=== PATIENT | male | born 1965 | race Caucasian/White ===

== ENCOUNTER 2021-10-22 06:04 | Outpatient (CLI) | payer OTHER, SELFPAY ==
--- NOTE | 2021-10-22 | US_ITS ---
WS: [id number] Exam: US renal BI* [id number] Date/Time of Exam: 10/22/2021 6:34 AM Reason For Exam: KIDNEY STONES Technically difficult exam due to large body habitus. The kidneys are of normal size, shape and location. Nonobstructing stones are noted in both kidneys. No cysts were identified. No obvious solid renal mass. No renal obstruction. The right kidney measure s 10.82 x 7.42 x 6.5 cm. Right renal cortex measures 1.73 cm at greatest thickness. The left kidney m easures 11.2 x 7.6 x 5.6 cm. Left renal cortex measures 2.11 cm. US/US renal BI* [id number] IMPRESSION: 1. Multiple nonobstructing bilateral renal calculi. The largest stone visualize d was approximately 8 mm at greatest diameter in the left kidney. 2. No sign of renal cyst, solid mass or obstruction.
== END 2021-10-22 06:05 | disposition home or self-care (01) ==
LOC: RAD 06:05
PROVIDERS: Visit Provider Urology
DX: N20.0 Calculus of kidney (principal)
CPT/HCPCS: 76770

== ENCOUNTER 2022-11-27 06:50 | Outpatient (CLI) | payer OTHER, SELFPAY ==
[2022-11-27 07:30] VITALS: PULSE 69; RESP 18; O2SAT 98
[2022-11-27] MEDS: albuterol 2.5 mg/3 mL Neb INHALATION (07:30)
== END 2022-11-27 06:51 | disposition home or self-care (01) ==
LOC: RT 06:51
PROVIDERS: PCP Emergency Medicine; Visit Provider Emergency Medicine
DX: R06.09 Other forms of dyspnea (principal)
CPT/HCPCS: 94060; 94726; 94729; J7613

== ENCOUNTER 2024-04-22 07:02 | Outpatient (CLI) | payer OTHER, SELFPAY ==
[2024-04-22 07:48] LABS: Bilirubin Urine Negative (Negative); Blood Urine Trace (Negative); Glucose Urine UA Negative (Normal); Ketones Urine Negative (Negative); Leukocyte Esterase Urine 1+ (Negative); Nitrate Urine Negative (Negative); Protein Urine Negative (Negative); Specific Gravity, Urine 1.022 (1.005-1.030); Urine Appearance Clear (CLEAR); Urine Color Yellow (Yellow); Urobilinogen Urine 0.2 mg/dL (Negative); pH Urine 5.5 (5-7)
[2024-04-22 07:50] LABS: Add Urine Microscopic? YES; Bacteria Urine None Seen /hpf; Hyaline Casts Urine 0.81 /lpf; Squamous Epithelial Cell Urine 0-5 /hpf (0-5)
[2024-04-22 08:00] LABS: Alanine Aminotransferase 14 U/L (0-41); Alkaline Phosphatase 39 U/L (40-130); Anion Gap 11.9 (5-19); Aspartate Amino Transferase 18 U/L (0-40); Blood Urea Nitrogen 23 mg/dL (6-20); Carbon Dioxide 27 mmol/L (22-29); Chloride 105 mmol/L (98-107); Globulin 2.6 g/dL (1.3-4.6); Glucose 101 mg/dL (65-115); Osmolality Calculated 294 mOsm/kg (285-295); Potassium 3.9 mmol/L (3.5-5.1); Sodium 140 mmol/L (136-145); Total Bilirubin 0.4 mg/dL (0.15-1.2); Total Protein 6.6 g/dL (6.6-8.7)
== END 2024-04-22 07:03 | disposition home or self-care (01) ==
LOC: LAB 07:05
PROVIDERS: PCP Emergency Medicine; Visit Provider Chiropractor
DX: E11.9 Type 2 diabetes mellitus without complications (principal)
CPT/HCPCS: 36415; 80053; 81001

== ENCOUNTER 2024-06-27 16:09 | Outpatient (CLI) | payer OTHER, SELFPAY ==
--- NOTE | 2024-06-27 16:14 | US_ITS ---
WS: [id number] THYROID ULTRASOUND HISTORY: palpable rt thyroid mass COMPARISON: None available. Right lobe: 1.4 cm x 2.2 cm x 4.1 cm (w x ap x l). Volume: 6.2 cm3. Mildly enlarged RIGHT thyroid. Solid mass in the mid gland with mild increased vascularity. Mass measures 1.6 x 1.6 x 2.2 cm. No echogenic foci are present. No cystic component. Left lobe: 1.3 cm x 1.7 cm x 4.0 cm (w x ap x l). Volume: 4.0 cm3. Normal size and mild heterogeneous echotexture. No significant or dominant nodules are present. Isthmus: 0.5 cm. US/US thyroid [id number] IMPRESSION: 1. TI-RADS 4; moderately suspicious. Recommend ultrasound-guided FNA mid RIGHT thyroid nodule.
== END 2024-06-27 16:10 | disposition home or self-care (01) ==
LOC: RAD 16:10
PROVIDERS: PCP Emergency Medicine; Visit Provider Emergency Medicine
DX: E04.1 Nontoxic single thyroid nodule (principal); E04.9 Nontoxic goiter, unspecified
CPT/HCPCS: 76536

== ENCOUNTER 2024-07-21 12:06 | Outpatient (CLI) | payer OTHER, SELFPAY ==
--- NOTE | 2024-07-21 12:13 | US_ITS ---
WS: [id number] ULTRASOUND GUIDED RIGHT THYROID FNA CLINICAL INFORMATION: THYROID NODULE TECHNIQUE: Ultrasound-guided FNA FINDINGS: The procedure including risks, benefits, and complications were discussed with the patient who agreed to proceed. Timeout was performed. Using sterile technique patient was prepped and draped in usual sterile fashion. After 1% lidocaine, using ultrasound guidance, a 25-gauge needle was advanced into the RIGHT thyroid nodule. 5 passes were made with active aspiration. Pathology was present for slide preparation. No immediate complications. Patient remained in the ultrasound suite 10 minutes postprocedure with intermittent ultrasound to ensure no hematoma. No hematoma 10 minutes postprocedure. US/US guide FNA [id number] IMPRESSION: Uncomplicated ultrasound-guided RIGHT thyroid FNA
== END 2024-07-21 12:07 | disposition home or self-care (01) ==
PROVIDERS: PCP Emergency Medicine; Visit Provider Emergency Medicine
DX: D44.0 Neoplasm of uncertain behavior of thyroid gland (principal)
CPT/HCPCS: 10005; 88173

== ENCOUNTER 2024-09-21 13:58 | Emergency (ER) | payer OTHER, SELFPAY ==
--- NOTE | 2024-09-21 14:09 | XRR_ITS ---
PROCEDURE INFORMATION: Exam: XR Chest Exam date and time: 09/21/2024 2:14 PM Age: 59 years old Clinical indication: Pain; Angina pectoris; Additional info: Cp TECHNIQUE: Imaging protocol: Radiologic exam of the chest. Views: 1 view. COMPARISON: No relevant prior studies available. FINDINGS: Lungs: 3 mm peripheral nodule in the right lower lung zone. No infiltrates. Pleural spaces: Unremarkable. No pleural effusion. No pneumothorax. Heart/Mediastinum: Unremarkable. No cardiomegaly. Bones/joints: Unremarkable. XR/XR chest 1V portable [id number] IMPRESSION: 1. No acute disease in the chest. 2. 3 mm right lower lung pulmonary nodule.
--- NOTE | 2024-09-21 14:16 | ECG_ITS ---
[facility] Test Date: 2024-09-21 Pat Name: Aryan Sosa Department: Room: Gender: Male Nuclear Technologist: : 1965 Requested By: Gustavo Gilliam Order Number: [id number] Damon MD: Ellen De La Paz M.D. Measurements Intervals [place] Rate: 82 P: 21 MD: 148 QRS: 7 QRSD: 86 T: 31 QT: 345 QTc: 404 Interpretive Statements SINUS RHYTHM MINIMAL VOLTAGE CRITERIA FOR LVH, CONSIDER NORMAL VARIANT [MEETS CRITERIA IN ONE OF: R(aVL), S(V1), R(V5), R(V5/V6)+S(V1)] NONSPECIFIC T-WAVE ABNORMALITY No previous ECG available for comparison Electronically Signed On 09-21-2024 16:40:26 CDT by Ellen De La Paz M.D. [email or web address] [id number]
[2024-09-21 14:21] VITALS: BP 161/93; PULSE 78; RESP 17; TEMP 36.9; O2SAT 93; BMI 42.5
[2024-09-21 14:49] LABS: Hematocrit 48.5 % (37-53); Hemoglobin 16.40 g/dL (11.27-16.99); Mean Corpuscular HGB Conc 33.8 g/dL (30-55); Mean Corpuscular Hemoglobin 32.1 pg (27-33); Mean Corpuscular Volume 94.9 fl (82-101); Nucleated Red Blood Cells % 0 %; Platelet Count 132 10^3/cmm (157-399); Red Blood Count 5.11 10^6/uL (3.85-5.65); White Blood Count 8.50 10^3/uL (3.29-11.43)
[2024-09-21 15:09] LABS: Troponin(5th) Baseline 8 ng/L (0-15)
[2024-09-21 15:18] LABS: Alanine Aminotransferase 13 U/L (0-41); Albumin Level 4.3 g/dL (3.5-5.2); Alkaline Phosphatase 46 U/L (40-130); Blood Urea Nitrogen 18 mg/dL (6-20); Calcium 9.3 mg/dL (8.5-10.5); Carbon Dioxide 25 mmol/L (22-29); Chloride 105 mmol/L (98-107); Creatinine Clr Calc Pharmacy 114.8030; Globulin 2.5 g/dL (1.3-4.6); Glucose 98 mg/dL (65-115); Lipase 72 U/L (13-60); Osmolality Calculated 300 mOsm/kg (285-295); Sodium 144 mmol/L (136-145); Total Protein 6.8 g/dL (6.6-8.7)
[2024-09-21 15:24] LABS: Anion Gap 17.7 (5-19); Aspartate Amino Transferase 18 U/L (0-40); Potassium 3.7 mmol/L (3.5-5.1)
--- NOTE | 2024-09-21 16:09 | ECG_ITS ---
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
[2024-09-21 17:04] VITALS: BP 166/97; PULSE 75; RESP 16; O2SAT 96
--- NOTE | 2024-09-21 17:04 | ED_ITS ---
HPI - Chest Pain 2 General: Chief Complaint: Chest Pain Stated Complaint: headaches, back pain, on/off CP Time Seen by Provider: 09/21/24 16:57 History of Present Illness: 59M with chronic migraines reports a 2-d ay frontal headache rated 8/10 that kept him off work and caused two episodes of vomiting. Home abortive and monthly preventive injections failed to relieve the pain. He noticed burning, itching rash that began on the back late Thursday night, spread around to the right upper abdomen/lower chest along a band, and is new for him. Chest pain is intermittent, sharp, stabbing, currently absent. No fever. Daughter?s internet search suggested shingles, which clinician concurs. No prior cardiac problems. Occasional cigar use only. Related Data Previous Rx's ?Medication ?Instructions ?Recorded acyclovir 800 mg tablet 800 mg PO 5XD 7 days #35 tab s 09/21/24 Allergies Allergy/AdvReac Type Severity Reaction Status Date / Time No Known Allergies Allergy Verified 09/21/24 14:26 Physical Exam 2 Const: COMMON NORMALS: no acute distress, patient oriented x3 and alert HENMT: COMMON NORMALS: normocephalic and atraumatic HEAD & SCALP: n ormocephalic and atraumatic Eye: COMMON NORMALS: Equal, round and reactive pupils present, EOMs intact bilaterally and no scleral icterus PUPIL: Yes Equal, round and reactive pupils present Chest: OTHER: Chest pain is not reproducible with palpation or deep inspiration Resp: COMMON NORMALS: normal respiratory effort and No retractions Cardio: COMMON NORMALS: regular rate, regular rhythm and No murmurs present (Cardio) RATE: regular rate RHYTHM: regular rhythm GI: COMMON NORMALS: Normal to inspection, nondistended, normoactive bowel sounds present, Soft to palpation and non-tender PALPATION: Yes Soft to palpation Neuro: COMMON NORMALS: patient oriented x3 SENSORIUM/ORIENTATION: Yes alert Skin: NARRATIVE SKIN EXAM: islands of raised, red, vesicular rash in various stages of healing and crusting spreading across the upper back to the right upper abdomen and lower chest consistent with shingles. Course 2 Vital Signs: Vital signs: Vital Signs Temperature 98.4 F 09/21/24 14:21 Pulse Rate 71 09/21/24 20:11 Respiratory Rate 14 09/21/24 19:51 Blood Pressure 169/99 09/21/24 20:11 Pulse Oximetry 95 09/21/24 20:11 Oxygen Delivery Me thod Room Air 09/21/24 18:07 MDM - Chest Pain Medical Decision Making In summary, patient is a generally well-appearing 59-year-old male seen for migraine headache and what appears to be shingles. EKG is reassuring and troponin x 2 is similarly reassuring. Chest x-ray and labs are otherwise unremarkable. Headache is better with IV fluids, Benadryl, Compazine, and Decadron. He was given valacyclovir for shingles. Lab Data 09/21/24 14:41 09/21/24 14:41 Radiology Impressions Chest X-Ray 09/21/24 14:09 IMPRESSION: 1. No acute disease in the chest. 2. 3 mm right lower lung pulmonary nodule. Laboratory Results WBC 8.50 10^3/uL (3.29-11.43) 09/21/24 14:41 RBC 5.11 10^6/uL (3.85-5.65) 09/21/24 14:41 Hgb 16.40 g/dL (11.27-16.99) 09/21/24 14:41 Hct 48.5 % (37-53) 09/21/24 14:41 MCV 94.9 fl (82-101) 09/21/24 14:41 MCH 32.1 pg (27-33) 09/21/24 14:41 MCHC 33.8 g/dL (30-55) 09/21/24 14:41 RDW 13.4 % (12.1-15.1) 09/21/24 14:41 Plt Count 132 10^3/cmm (157-399) L 09/21/24 14:41 MPV 8.6 fL (7.4-10.4) 09/21/24 14:41 Neut % (Auto) 72.6 % 09/21/24 14:41 Lymph % (Auto) 18.5 % 09/21/24 14:41 Wright % (Auto) 6.0 % 09/21/24 14:41 Eos % (Auto) 1.5 % 09/21/24 14:41 Baso % (Auto) 0.8 % 09/21/24 14:41 Neut # (Auto) 6.17 10^3/uL (1.8-7.7) 09/21/24 14:41 Lymph # (Auto) 1.6 10^3/uL (0.8-4.8) 09/21/24 14:41 Wright # (Auto) 0.5 10^3/uL (0.2-0.9) 09/21/24 14:41 Eos # (Auto) 0.1 10^3/uL (0.0-0.8) 09/21/24 14:41 Baso # (Auto) 0.1 10^3/uL (0.0-0.1) 09/21/24 14:41 Nucleated RBC % (auto) 0 % 09/21/24 14:41 Nucleated RBCs # 0.0 /100WBC 09/21/24 14:41 Sodium 144 mmol/L (136-145) 09/21/24 14:41 Potassium 3.7 mmol/L (3.5-5.1) 09/21/24 14:41 Chloride 105 mmol/L (98-107) 09/21/24 14:41 Carbon Dioxide 25 mmol/L (22-29) 09/21/24 14:41 Anion Gap 17.7 (5-19) 09/21/24 14:41 BUN 18 mg/dL (6-20) 09/21/24 14:41 Creatinine 0.9 mg/dL (0.7-1.2) 09/21/24 14:41 GFR Calculation 86.4 mL/min (90-130) L 09/21/24 14:41 Glucose 98 mg/dL (65-115) 09/21/24 14:41 Calculated Osmolality 300 mOsm/kg (285-295) H 09/21/24 14:41 Calcium 9.3 mg/dL (8.5-10.5) 09/21/24 14:41 Total Bilirubin 0.3 mg/dL (0.15-1.2) 09/21/24 14:41 AST 18 U/L (0-40) 09/21/24 14:41 ALT 13 U/L (0-41) 09/21/24 14:41 Alkaline Phosphatase 46 U/L (40-130) 09/21/24 14:41 Troponin T Baseline 8 ng/L (0-15) 09/21/24 14:41 Troponin T 120 Minute 7.56 ng/L (0-15) 09/21/24 17:02 Delta Troponin T -0.44 ABS# (0-10) L 09/21/24 17:02 Total Protein 6.8 g/dL (6.6-8.7) 09/21/24 14:41 Albumin 4.3 g/dL (3.5-5.2) 09/21/24 14:41 Globulin 2.5 g/dL (1.3-4.6) 09/21/24 14:41 Lipase 72 U/L (13-60) H 09/21/24 14:41 All radiology interpretation(s) finalized by discharge EKG Data EKG 1: Computer generated interpretation: Time?1416?sinus rhythm, rate of 82, subtle submillimeter ST segment elevation of aVR with subtle, submillimeter ST depression of leads II, aVF, V5, V4, with no T wave inversions. QTc = 404 Discharge Plan Discharge Patient Disposition: Home Clinical Impression: Migraine, Herpes zoster infection of thoracic region Condition: Stable Prescriptions: New acyclovir 800 mg tablet 800 mg PO 5XD 7 Days Qty: 35 0RF Rx Instructions: space evenly during waking hours Discharge Orders: Discharge ED (Routine); Ordered 09/21/24 Ordered By: Mehul Lopes Referrals: Juany Malcolm M.D [Primary Care Provider] Discharge Diet: Advance as tolerated Discharge Activity: Increase activity as tolerated Patient Instructions: Cherri (ED), Patient Portal & Nitin Instructions Stand Alone Forms: Work/School Release Print Language: Turkmen Coding Level of Care Code ED Title Investigator for Angela Medley
[2024-09-21 17:38] LABS: Troponin 5 2HR 7.56 ng/L (0-15)
[2024-09-21 17:43] LABS: Troponin 5 2HR Delta -0.44 ABS# (0-10)
[2024-09-21] MEDS: diphenhydrAMINE 50 mg/mL SDV 1mL IVP (17:59)
[2024-09-21 18:07] VITALS: BP 178/91; PULSE 70; RESP 17; O2SAT 98
[2024-09-21 18:43] VITALS: BP 165/89; PULSE 62; RESP 15; O2SAT 95
[2024-09-21 19:51] VITALS: BP 164/90; PULSE 68; RESP 14; O2SAT 94
--- NOTE | 2024-09-21 20:09 | ECG_ITS ---
[facility] Test Date: 2024-09-21 Pat Name: Aryan Sosa Department: Room: Gender: Male Health Record Technician: : 1965 Requested By: Gustavo Gilliam Order Number: [id number] Reading MD: VERO MUSA Measurements Intervals [place] Rate: 68 P: 49 [place]: 162 QRS: 13 QRSD: 89 T: 31 QT: 385 QTc: 412 Interpretive Statements SINUS RHYTHM Compared to ECG 09/21/2024 17:10:23 T-wave abnormality no longer present Electronically Signed On 09-24-2024 16:13:00 CDT by VERO MUSA [email or web address] [id number]
[2024-09-21 20:11] VITALS: BP 169/99; PULSE 71; O2SAT 95
== END 2024-09-21 20:21 | disposition home or self-care (01) ==
PROVIDERS: Emergency Medicine; Emergency Provider Student in an Organized Health Care Education/Training Program; PCP Emergency Medicine
DX: G43.909 Migraine, unspecified, not intractable, without status migrainosus (principal); B02.9 Zoster without complications
CPT/HCPCS: 36415; 71045; 80053; 83690; 84484; 85025; 93005; 96361; 96374; 96375; 99285; J0780; J1100; J1200; J7030; J9999

== ENCOUNTER 2024-12-28 13:49 | Outpatient (CLI) | payer OTHER, SELFPAY ==
--- NOTE | 2024-12-28 13:58 | XR_ITS ---
WS: [email or web address] Thoracic spine, 3 views, 12/28/2024 Clinical Data: BACK PAIN Comparison: None. Findings: No compression fractures are seen. The disc heights are normal. There is minimal anterior osteoarthritis. The paravertebral regions are normal. There is a slight dextroscoliosis. XR/XR thoracic spine 3V* [id number] Impression: Dextroscoliosis and minimal osteoarthritis of the thoracic spine.
--- NOTE | 2024-12-28 13:58 | XR_ITS ---
WS: [email or web address] Cervical spine, 3 views, 12/28/2024 Clinical Data: BACK PAIN Comparison: None. Findings: No compression fractures are seen. There is minimal disc narrowing at C6-C7. There is no prevertebral soft tissue swelling. The odontoid is unremarkable. The soft tissues of the neck and the lung apices are normal. XR/XR cervical spine 3V* [id number] Impression: Disc narrowing at C6-C7.
--- NOTE | 2024-12-28 13:58 | XR_ITS ---
WS: [email or web address] Lumbar spine, 3 views, 12/28/2024 Clinical Data: BACK PAIN Comparison: None. Findings: No compression fractures are seen. There is 0.9 cm anterior subluxation of L5 on S1 with bilateral spondylolysis. There is disc narrowing at L5-S1. The transverse processes and SI joints are normal. XR/XR lumbar spine 2-3V* [id number] Impression: Anterior subluxation of L5 on S1 with bilateral spondylolysis.
== END 2024-12-28 13:50 | disposition home or self-care (01) ==
PROVIDERS: PCP Emergency Medicine; Visit Provider Nurse Practitioner Family
DX: M43.07 Spondylolysis, lumbosacral region (principal); M51.379 Other intervertebral disc degeneration, lumbosacral region without mention of lumbar back pain or lower extremity pain; R93.7 Abnormal findings on diagnostic imaging of other parts of musculoskeletal system
CPT/HCPCS: 72040; 72072; 72100

== ENCOUNTER 2025-02-05 09:18 | Emergency (ER) | payer OTHER, SELFPAY ==
--- OUTSIDE RECORDS SUMMARY | 2025-02-05 09:26 | XMS_ITS | Clinical Summary ---
Author Organization [facility] Address [address] [place] [address] Phone Care Team Providers Care Winery Cellar Hand Name Role Phone Juany Malcolm MD Primary Care Provider Unavailab le Social History Tobacco Use Types Packs/Day Years Used Date Smoking Tobacco: Never Assessed Sex and Gender Information Value Date Recorded Sex Assigned at Not on file Legal Sex Male 2:44 PM CDT Gender Identity Not on file Sexual Orientation Not on file Plan of Treatment Health Maintenance Due Date Last Done Comments CT Colonography 1965 Colonoscopy 1965 Colorectal Cancer Screening 1965 Creatinine Level 1965 FIT-DNA 1965 FIT 1965 FOBT 1965 Lipid Panel 1965 Potassium Level 1965 Sigmoidoscopy 1965 MMR Vaccines (1 of 1 - Standard series) 1966 Varicella Vaccines (1 of 2 - 13+ 2-dose series) 1978 Depression Screening 1983 Diabetes Screening 1983 Social Drivers of Health (SDoH) 1983 Hepatitis B Vaccines (1 of 3 - 19+ 3-dose series) 02/15/1984 COVID-19 Vaccine ( - season) 2024 Influenza Vaccine (#1) 2024 , 11/11/2022, 01/02/2021, Additional history exists DTaP,Tdap,and Td Vaccines (6 - Td or Tdap) 01/02/2031 01/02/2021, 12/12/2016, 05/21/2011, Additional history exists RSV Vaccines (1 - 1-dose 75+ series) 02/15/2040 Zoster Vaccines Completed 01/02/2021, 06/04/2020 Pneumococcal Vaccines: 50+ Years Completed 01/03/2022, 11/16/2015 HIB Vaccines Aged Out No longer eligi ble based on patient's age to complete this topic HPV Vaccines Aged Out No longer eligi ble based on patient's age to complete this topic Hepatitis A Vaccines Aged Out No long er eligible based on patient's age to complete this topic IPV Vaccines Aged Out No longer eligi ble based on patient's age to complete this topic Meningococcal B Vaccine Aged Out No l onger eligible based on patient's age to complete this topic Meningococcal Vaccine Aged Out No elisa martha eligible based on patient's age to complete this topic Rotavirus Vaccines Aged Out No longer eligible based on patient's age to complete this topic Insurance [facility] OPTUM Care Teams Winery Cellar Hand Relationship Specialty Start Date End Date Juany Malcolm MD PCP - General Family Medicine 06/17/24
--- OUTSIDE RECORDS SUMMARY | 2025-02-05 09:26 | XMS_ITS | Clinical Summary ---
Author Organization [facility] Address [address] Villalobos: Epic Prelude ADT GRACIE FRAZIER [id number] Care Team Providers Care Composite Science Teacher Name Role Phone Unavailable Primary Care Provider Unavailabl e Allergies Active Allergy Reactions Criticality Noted Date Comments Metformin Diarrhea Low 11/16/2015 Immunizations Immunization Administration Dates Next Due (TDVAX)(7 YRS UP) TETANUS AN D DIPHTHERIA TOXOIDS, ADSORBED (2 LF OF TETANUS TOXOID AND 2 LF OF DIPHTHERIA TOXOID), 0.5ML (PF), IM 06/22/1998 Social History Tobacco Use Types Packs/Day Years Used Date Smoking Tobacco: Never Assessed Sex and Gender Information Value Date Recorded Sex Assigned at Not on file 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
[2025-02-05 09:29] VITALS: BP 145/93; PULSE 68; RESP 18; TEMP 36.6; O2SAT 99; BMI 41.6
--- NOTE | 2025-02-05 09:39 | CTR_ITS ---
PROCEDURE INFORMATION: Exam: CT Abdomen And Pelvis With Contrast Exam date and time: 02/05/2025 10:03 AM Age: 59 years old Clinical indication: Other: Upper abd pain, hematuria TECHNIQUE: Imaging protocol: Computed tomography of the abdomen and pelvis with contrast. Radiation optimization: All CT scans at this facility use at least one of these dose optimization techniques: automated exposure control; mA and/or kV adjustment per patient size (includes targeted exams where dose is matched to clinical indication); or iterative reconstruction. Contrast material: OMNI 350; Contrast volume: 100 ml; Contrast route: INTRAVENOUS (IV); COMPARISON: US renal BI* [id number] 10/22/2021 6:36 AM RADIATION DOSE METRICS: Total DLP (mGy-cm): 1160.65 FINDINGS: Lungs: 2 mm solid noncalcified nodule lateral right lung base. Otherwise, clear lung bases. Liver: Mild, diffuse fatty infiltration of the liver. A few tiny low-density lesions scattered throughout the liver. Otherwise, unremarkable. Gallbladder and biliary ducts: Small gallstone in the gallbladder near the neck. Possible mild gallbladder wall thickening. Unremarkable bile ducts. Pancreas: Normal. No ductal dilation. Spleen: Normal. No splenomegaly. Adrenal glands: Normal. No mass. Kidneys and ureters: Multiple tiny renal cysts bilaterally need no follow-up. Multiple small nonobstructing bilateral renal calculi. Otherwise, unremarkable. Stomach and bowel: Unremarkable. No obstruction. No mucosal thickening. Appendix: No evidence of appendicitis. Intraperitoneal space: Unremarkable. No free air. No significant fluid collection. Vasculature: Unremarkable. No abdominal aortic aneurysm. Lymph nodes: Large right inguinal hernia containing fat, a portion of the urinary bladder, and a normal appearing lymph node. Urinary bladder: Otherwise, unremarkable. Reproductive: Unremarkable. Bones/joints: Chronic bilateral L5 spondylolysis with grade 1 spondylolisthesis of L5 anteriorly on S1. Mild and moderate multilevel spondylosis. Otherwise, unremarkable. Soft tissues: Large right inguinal hernia containing fat, a portion of the urinary bladder, and a normal appearing lymph node. Small fat containing left inguinal hernia. Otherwise, unremarkable visualized body wall. Otherwise, unremarkable soft tissues. CT/CT abdomen pelvis w con* [id number] IMPRESSION: 1. Large right inguinal hernia containing fat, a portion of the urinary bladder, and a normal appearing lymph node. 2. Small fat containing left inguinal hernia. 3. 2 mm solid noncalcified nodule lateral right lung base. For patients at low risk (minimal or absent history of smoking and of other known risk factors), no routine follow-up is indicated. For patients at high risk (history of smoking or of other known risk factors), consider optional CT Chest at 12 months. (Reference: Tracie) 4. Mild, diffuse fatty infiltration of the liver. 5. A few tiny low-density lesions scattered throughout the liver. Consider a follow-up CT in 6 months to ensure stability of these likely benign findings. 6. Small gallstone in the gallbladder near the neck. Possible mild gallbladder wall thickening. Consider cholecystitis. 7. No other acute findings. 8. Additional details as above. COMMENTS: Consistent with the [place] [employer]'s Incidental Findings Committee white paper (J Am Mil Radiol 2018): Any incidental renal lesion less than 1 cm or classified as too small to characterize, or any incidental cystic renal lesion characterized as simple-appearing, is likely benign. No follow-up imaging is recommended for these lesions per consensus recommendations based on imaging criteria. REFERENCES: Tracie Goodson et al. Guidelines for Management of Incidental Pulmonary Nodules Detected on CT Images: From the Fleischner Society 2017. Radiology. 2017;284(1):228-243.
--- NOTE | 2025-02-05 09:46 | W.ED.ABDPA2 ---
Documented by User: WADE Mullen 02/05/25 13:18 HPI - Abdominal Pain General: Chief Complaint: Abdominal Pain Stated Complaint: abdominal pain, urinating blood Time Seen by Provider: 02/05/25 09:29 Source: patient Mode of arrival: ambulatory Limitations: no limitations History of Present Illness: evaluation. Patient is a 59-year-old male who presents to the emergency department complaining of epigastric pain for the past 2 days. Pain has been constant since onset, will intermittently take his breath away. States that he thought it was acid reflux but it has persisted longer and feels different. He does take Zepbound for weight loss. At the same time as onset of pain, he does note consistent hematuria. He has no lower abdominal pain, dysuria, hesitancy with urination, or back pain. He does note a history of kidney stones but again states that he is not having any pain. No fevers, nausea or vomiting, diarrhea. No blood in his stool. No weakness. No chest pain. Pain is mild at this time, denies needing pain medication or nausea medication. Does have history of inguinal hernia, states that he is not having any testicular pain. No penile discharge. Vitals are stable at this time he is nontoxic-appearing and in no acute distress. No other history of abdominal surgeries. MD elicited complaint: abdominal pain Onset (ago): day(s) Pain Consistency: constant Location: Epigastric Severity: mild Quality: dull and burning Associated Symptoms: Reports hematuria; Denies bloating, change in stool character, chills, constipation, diarrhea, dysuria, fever(s), hematochezia, nausea and vomiting Related Data Home Medications ?Medication ?Instructions ?Recorded ?Confirmed allopurinol 300 mg tablet 300 mg PO DAILY 02/05/25 02/05/25 anastrozole 1 mg tablet 1 mg PO .Q7D 02/05/25 02/05/25 cholecalciferol (vitamin D3) 50 50 mcg PO DAILY 02/05/25 02/05/25 mcg (2,000 unit) tablet clomiphene citrate 50 mg tablet 25 mg PO DAILY 02/05/25 02/05/25 fexofenadine 180 mg tablet 180 mg PO DAILY 02/05/25 02/05/25 levothyroxine 25 mcg tablet 25 mcg PO DAILY 02/05/25 02/05/25 lisinopril 10 1 tab PO DAILY 02/05/25 02/05/25 mg-hydrochlorothiazide 12.5 mg tablet riboflavin (vitamin B2) 100 mg 200 mg PO DAILY 02/05/25 02/05/25 tablet sertraline 100 mg tablet 50 mg PO DAILY 02/05/25 02/05/25 tamsulosin 0.4 mg capsule 0.8 mg PO DAILY 02/05/25 02/05/25 tirzepatide (weight loss) 15 15 mg SUBCUT Q7D 02/05/25 02/05/25 mg/0.5 mL subcutaneous pen injector Allergies Allergy/AdvReac Type Severity Reaction Status Date / Time No Known Allergies Allergy Verified 09/21/24 14:26 Review of Systems General: Reports: 10 or more systems reviewed and unremarkable except in HPI and below Const: Denies: fever(s), chills, change in appetite, change in weight or diaphoresis ENMT: Denies: throat pain or hoarseness Card: Denies: chest pain, palpitations or lightheadedness Resp: Denies: dyspnea, productive cough or wheezing GI: Reports: abdominal pain; Denies: nausea, vomiting, diarrhea, constipation, bloating, change in stool character or hematochezia : Reports: hematuria; Denies: flank pain, difficulty urinating, dysuria, urinary frequency, urinary urgency, genital pain, penile discharge or testicular pain Musc: Denies: neck pain or back pain Skin/Breast: Denies: rash or new lesions Neuro: Denies: headache(s) or dizziness Physical Exam Const: COMMON NORMALS: no acute distress, patient oriented x3, no limitations, healthy appearing, alert and well nourished GENERAL APPEARANCE: cooperative and comfortable ORIENTATION/CONSCIOUSNESS: Yes awake OTHER: nontoxic Neck/C-Spine: COMMON NORMALS: full ROM, supple and no meningeal signs Resp: COMMON NORMALS: normal respiratory effort, No retractions, No use of accessory muscles and clear to auscultation bilaterally AUSCULTATION: clear to auscultation bilaterally, no crackles, no rales, no rhonchi and no wheezes Cardio: COMMON NORMALS: regular rate, regular rhythm, No gallops present (Cardio), No clicks present (Cardio), No murmurs present (Cardio) and No rub (Cardio) RATE: regular rate RHYTHM: regular rhythm GI: COMMON NORMALS: Soft to palpation, No hepatosplenomegaly present and no masses INSPECTION: Yes central obesity AUSCULTATION: Yes normoactive bowel sounds PALPATION: Yes Soft to palpation, Yes Tenderness to palpation present (GI) (upper abdomen), No Guarding due to palpation present (GI), No Rigid due to palpation and Yes No hepatosplenomegaly present RECTAL EXAM: Yes deferred : COMMON NORMALS: Yes no CVA tenderness BLADDER/KIDNEY EXAM: Yes no CVA tenderness Back/Pelvis: COMMON NORMALS: no CVA tenderness Extremity: COMMON NORMALS: normal to inspection and full ROM Neuro: COMMON NORMALS: patient oriented x3, moves all extremities, no focal motor deficits and no sensory deficits noted SENSORIUM/ORIENTATION: Yes alert MENINGEAL SIGNS: Yes no meningeal signs Psych: COMMON NORMALS: mental status grossly normal, cooperative and speech normal SPEECH: Yes normal speech Skin: COMMON NORMALS: no rashes or lesions noted GENERAL SKIN EXAM: no rashes or lesions noted Course Vital Signs: Vital signs: Vital Signs Temperature 97.8 F 02/05/25 09:29 Pulse Rate 68 02/05/25 09:29 Respiratory Rate 18 02/05/25 09:29 Blood Pressure 145/93 02/05/25 09:29 Pulse Oximetry 99 02/05/25 09:29 Oxygen Delivery Me thod Room Air 02/05/25 09:29 MDM - Abdominal Pain Medical Decision Making Patient presented with upper abdominal pain, and hematuria both been occurring for the past couple of days. On exam tender to palpation to the upper abdomen, no flank tenderness and he had no other urinary symptoms such as dysuria or hesitancy/frequency changes. Lab workup shows no leukocytosis however there is elevation in his total bilirubin to 2.2, transaminitis, and lipase elevation to 549. Urinalysis shows hematuria but no significant infectious parameters. CT was ordered showing inguinal hernia containing fat and a portion of the urinary bladder, this likely explains his hematuria though there are no signs of strangulation or incarceration and this is to be addressed by his urologist as an outpatient. However with his gallbladder appeared to be a couple of stones, 1 adjacent to the neck and evidence of cholecystitis and recommended correlation with ultrasound. There is no duct dilation on the ultrasound, however there is cholecystitis. I spoke with Dr. Galo, who thinks that there still might be a stone and that this would need an ERCP and he cannot except here. Because of this patient transferred to [facility], excepted by hospitalist services Dr. Aguilar and will transfer by ambulance. He is sleeping fluids at this time received Rocephin through IV and pain and nausea medications. Vitals have remained stable he has remained clinically well, agrees with transfer and all other questions and concerns addressed at this time. Lab Data 02/05/25 10:02 02/05/25 10:02 Labs/Radiology: Radiology Impressions Abdomen/Pelvis CT 02/05/25 09:39 IMPRESSION: 1. Large right inguinal hernia containing fat, a portion of the urinary bladder, and a normal appearing lymph node. 2. Small fat containing left inguinal hernia. 3. 2 mm solid noncalcified nodule lateral right lung base. For patients at low risk (minimal or absent history of smoking and of other known risk factors), no routine follow-up is indicated. For patients at high risk (history of smoking or of other known risk factors), consider optional CT Chest at 12 months. (Reference: Tracie) 4. Mild, diffuse fatty infiltration of the liver. 5. A few tiny low-density lesions scattered throughout the liver. Consider a follow-up CT in 6 months to ensure stability of these likely benign findings. 6. Small gallstone in the gallbladder near the neck. Possible mild gallbladder wall thickening. Consider cholecystitis. 7. No other acute findings. 8. Additional details as above. COMMENTS: Consistent with the [employer] [employer]'s Incidental Findings Committee white paper (J Am Mil Radiol 2018): Any incidental renal lesion less than 1 cm or classified as too small to characterize, or any incidental cystic renal lesion characterized as simple-appearing, is likely benign. No follow-up imaging is recommended for these lesions per consensus recommendations based on imaging criteria. REFERENCES: Tracie Goodson, et al. Guidelines for Management of Incidental Pulmonary Nodules Detected on CT Images: From the Fleischner Society 2017. Radiology. 2017;284(1):228-243. Gallbladder Ultrasound 02/05/25 10:37 IMPRESSION: 1. Several small gallstones in the gallbladder. Diffuse gallbladder wall thickening measuring as much as 5 mm. Cholecystitis should be considered. 2. The liver is diffusely hyperechoic consistent with fatty infiltration. However, cirrhosis or diffuse hepatocellular disease could have this appearance, as well. 3. No other acute findings. 4. Additional details as above. Laboratory Results WBC 5.90 10^3/uL (3.29-11.43) 02/05/25 10:02 RBC 4.84 10^6/uL (3.85-5.65) 02/05/25 10:02 Hgb 15.40 g/dL (11.27-16.99) 02/05/25 10:02 Hct 45.9 % (37-53) 02/05/25 10:02 MCV 94.8 fl (82-101) 02/05/25 10:02 MCH 31.8 pg (27-33) 02/05/25 10:02 MCHC 33.6 g/dL (30-55) 02/05/25 10:02 RDW 13.3 % (12.1-15.1) 02/05/25 10:02 Plt Count 159 10^3/cmm (157-399) 02/05/25 10:02 MPV 8.6 fL (7.4-10.4) 02/05/25 10:02 Neut % (Auto) 67.9 % 02/05/25 10:02 Lymph % (Auto) 21.5 % 02/05/25 10:02 [place] % (Auto) 5.3 % 02/05/25 10:02 Eos % (Auto) 3.4 % 02/05/25 10:02 Baso % (Auto) 1.4 % 02/05/25 10:02 Neut # (Auto) 4.01 10^3/uL (1.8-7.7) 02/05/25 10:02 Lymph # (Auto) 1.3 10^3/uL (0.8-4.8) 02/05/25 10:02 [place] # (Auto) 0.3 10^3/uL (0.2-0.9) 02/05/25 10:02 Eos # (Auto) 0.2 10^3/uL (0.0-0.8) 02/05/25 10:02 Baso # (Auto) 0.1 10^3/uL (0.0-0.1) 02/05/25 10:02 Nucleated RBC % (auto) 0 % 02/05/25 10:02 Nucleated RBCs # 0.0 /100WBC 02/05/25 10:02 Sodium 139 mmol/L (136-145) 02/05/25 10:02 Potassium 4.0 mmol/L (3.5-5.1) 02/05/25 10:02 Chloride 104 mmol/L (98-107) 02/05/25 10:02 Carbon Dioxide 26 mmol/L (22-29) 02/05/25 10:02 Anion Gap 13.0 (5-19) 02/05/25 10:02 BUN 18 mg/dL (6-20) 02/05/25 10:02 Creatinine 0.9 mg/dL (0.7-1.2) 02/05/25 10:02 GFR Calculation 86.4 mL/min (90-130) L 02/05/25 10:02 Glucose 104 mg/dL (65-115) 02/05/25 10:02 Calculated Osmolality 290 mOsm/kg (285-295) 02/05/25 10:02 Calcium 9.2 mg/dL (8.5-10.5) 02/05/25 10:02 Total Bilirubin 2.2 mg/dL (0.15-1.2) H 02/05/25 10:02 AST 266 U/L (0-40) H 02/05/25 10:02 ALT 425 U/L (0-41) H 02/05/25 10:02 Alkaline Phosphatase 130 U/L (40-130) 02/05/25 10:02 Total Protein 7.1 g/dL (6.6-8.7) 02/05/25 10:02 Albumin 4.2 g/dL (3.5-5.2) 02/05/25 10:02 Globulin 2.9 g/dL (1.3-4.6) 02/05/25 10:02 Lipase 549 U/L (13-60) H 02/05/25 10:02 Urine Color [place] (Yellow) A 02/05/25 10:13 Urine Appearance Turbid (CLEAR) A 02/05/25 10:13 Urine pH 5.5 (5-7) 02/05/25 10:13 Ur Specific [place] 1.020 (1.005-1.030) 02/05/25 10:13 Urine Protein Trace (Negative) A 02/05/25 10:13 Urine Glucose (UA) Negative (Normal) 02/05/25 10:13 Urine Ketones Negative (Negative) 02/05/25 10:13 Urine Blood 3+ (Negative) A 02/05/25 10:13 Urine Nitrate Negative (Negative) 02/05/25 10:13 Urine Bilirubin 1+ (Negative) H 02/05/25 10:13 Urine Urobilinogen 1.0 mg/dL (Negative) 02/05/25 10:13 Ur Leukocyte Esterase 1+ (Negative) A 02/05/25 10:13 Urine RBC >100 /hpf (0-2) H 02/05/25 10:13 Urine WBC 0-5 /hpf (0-5) 02/05/25 10:13 Ur Squamous Epith Cells 0-5 /hpf (0-5) 02/05/25 10:13 Amorphous Sediment Not Reportable 02/05/25 10:13 Urine Bacteria None seen /hpf (NONE) 02/05/25 10:13 Hyaline Casts 1.65 /lpf 02/05/25 10:13 All radiology interpretation(s) finalized by discharge Discharge Plan Discharge Patient Disposition: Xfer Short-Term Hosp Clinical Impression: Acute calculous cholecystitis Condition: Stable Referrals: Juany Malcolm M.D [Primary Care Provider] Patient Instructions: Abdominal Pain (ED) Print Language: Citizen Of [place] Coding Level of Care Code ED Central Supply Technician for Chg Galindo Documented by User: Gustavo Gilliam MD 02/05/25 14:03 HPI - Abdominal Pain General: Chief Complaint: Abdominal Pain Stated Complaint: abdominal pain, urinating blood Time Seen by Provider: 02/05/25 09:29 Related Data Home Medications ?Medication ?Instructions ?Recorded ?Confirmed allopurinol 300 mg tablet 300 mg PO DAILY 02/05/25 02/05/25 anastrozole 1 mg tablet 1 mg PO .Q7D 02/05/25 02/05/25 cholecalciferol (vitamin D3) 50 50 mcg PO DAILY 11/30/25 11/30/25 mcg (2,000 unit) tablet clomiphene citrate 50 mg tablet 25 mg PO DAILY 02/05/25 02/05/25 fexofenadine 180 mg tablet 180 mg PO DAILY 02/05/25 02/05/25 levothyroxine 25 mcg tablet 25 mcg PO DAILY 02/05/25 02/05/25 lisinopril 10 1 tab PO DAILY 02/05/25 02/05/25 mg-hydrochlorothiazide 12.5 mg tablet riboflavin (vitamin B2) 100 mg 200 mg PO DAILY 02/05/25 02/05/25 tablet sertraline 100 mg tablet 50 mg PO DAILY 02/05/25 02/05/25 tamsulosin 0.4 mg capsule 0.8 mg PO DAILY 02/05/25 02/05/25 tirzepatide (weight loss) 15 15 mg SUBCUT Q7D 02/05/25 02/05/25 mg/0.5 mL subcutaneous pen injector Allergies Allergy/AdvReac Type Severity Reaction Status Date / Time No Known Allergies Allergy Verified 09/21/24 14:26 Course Vital Signs: Vital signs: Vital Signs Temperature 97.8 F 02/05/25 09:29 Pulse Rate 68 02/05/25 09:29 Respiratory Rate 18 02/05/25 09:29 Blood Pressure 145/93 02/05/25 09:29 Pulse Oximetry 99 02/05/25 09:29 Oxygen Delivery Me thod Room Air 02/05/25 09:29 MDM - Abdominal Pain Medical Decision Making Patient presented with upper abdominal pain, and hematuria both been occurring for the past couple of days. On exam tender to palpation to the upper abdomen, no flank tenderness and he had no other urinary symptoms such as dysuria or hesitancy/frequency changes. Lab workup shows no leukocytosis however there is elevation in his total bilirubin to 2.2, transaminitis, and lipase elevation to 549. Urinalysis shows hematuria but no significant infectious parameters. CT was ordered showing inguinal hernia containing fat and a portion of the urinary bladder, this likely explains his hematuria though there are no signs of strangulation or incarceration and this is to be addressed by his urologist as an outpatient. However with his gallbladder appeared to be a couple of stones, 1 adjacent to the neck and evidence of cholecystitis and recommended correlation with ultrasound. There is no duct dilation on the ultrasound, however there is cholecystitis. I spoke with Dr. Iraj, who thinks that there still might be a stone and that this would need an ERCP and he cannot except here. Because of this patient transferred to [facility], excepted by hospitalist services Dr. Aguilar and will transfer by ambulance. He is sleeping fluids at this time received Rocephin through IV and pain and nausea medications. Vitals have remained stable he has remained clinically well, agrees with transfer and all other questions and concerns addressed at this time. I saw patient with midlevel agree with his history and physical. Patient has a pancreatitis along with cholecystitis midlevel and spoke to his surgeon Dr. Galo who recommended transfer for possible ERCP. Patient is being transferred to [facility]. Lab Data 02/05/25 10:02 02/05/25 10:02 Labs/Radiology: Radiology Impressions Abdomen/Pelvis CT 02/05/25 09:39 IMPRESSION: 1. Large right inguinal hernia containing fat, a portion of the urinary bladder, and a normal appearing lymph node. 2. Small fat containing left inguinal hernia. 3. 2 mm solid noncalcified nodule lateral right lung base. For patients at low risk (minimal or absent history of smoking and of other known risk factors), no routine follow-up is indicated. For patients at high risk (history of smoking or of other known risk factors), consider optional CT Chest at 12 months. (Reference: Tracie) 4. Mild, diffuse fatty infiltration of the liver. 5. A few tiny low-density lesions scattered throughout the liver. Consider a follow-up CT in 6 months to ensure stability of these likely benign findings. 6. Small gallstone in the gallbladder near the neck. Possible mild gallbladder wall thickening. Consider cholecystitis. 7. No other acute findings. 8. Additional details as above. COMMENTS: Consistent with the [employer] [employer]'s Incidental Findings Committee white paper (J Am Mil Radiol 2018): Any incidental renal lesion less than 1 cm or classified as too small to characterize, or any incidental cystic renal lesion characterized as simple-appearing, is likely benign. No follow-up imaging is recommended for these lesions per consensus recommendations based on imaging criteria. REFERENCES: Tracie Goodson et al. Guidelines for Management of Incidental Pulmonary Nodules Detected on CT Images: From the Fleischner Society 2017. Radiology. 2017;284(1):228-243. Gallbladder Ultrasound 02/05/25 10:37 IMPRESSION: 1. Several small gallstones in the gallbladder. Diffuse gallbladder wall thickening measuring as much as 5 mm. Cholecystitis should be considered. 2. The liver is diffusely hyperechoic consistent with fatty infiltration. However, cirrhosis or diffuse hepatocellular disease could have this appearance, as well. 3. No other acute findings. 4. Additional details as above. Laboratory Results WBC 5.90 10^3/uL (3.29-11.43) 02/05/25 10:02 RBC 4.84 10^6/uL (3.85-5.65) 02/05/25 10:02 Hgb 15.40 g/dL (11.27-16.99) 02/05/25 10:02 Hct 45.9 % (37-53) 02/05/25 10:02 MCV 94.8 fl (82-101) 02/05/25 10:02 MCH 31.8 pg (27-33) 02/05/25 10:02 MCHC 33.6 g/dL (30-55) 02/05/25 10:02 RDW 13.3 % (12.1-15.1) 02/05/25 10:02 Plt Count 159 10^3/cmm (157-399) 02/05/25 10:02 MPV 8.6 fL (7.4-10.4) 02/05/25 10:02 Neut % (Auto) 67.9 % 02/05/25 10:02 Lymph % (Auto) 21.5 % 02/05/25 10:02 [place] % (Auto) 5.3 % 02/05/25 10:02 Eos % (Auto) 3.4 % 02/05/25 10:02 Baso % (Auto) 1.4 % 02/05/25 10:02 Neut # (Auto) 4.01 10^3/uL (1.8-7.7) 02/05/25 10:02 Lymph # (Auto) 1.3 10^3/uL (0.8-4.8) 02/05/25 10:02 [place] # (Auto) 0.3 10^3/uL (0.2-0.9) 02/05/25 10:02 Eos # (Auto) 0.2 10^3/uL (0.0-0.8) 02/05/25 10:02 Baso # (Auto) 0.1 10^3/uL (0.0-0.1) 02/05/25 10:02 Nucleated RBC % (auto) 0 % 02/05/25 10:02 Nucleated RBCs # 0.0 /100WBC 02/05/25 10:02 Sodium 139 mmol/L (136-145) 02/05/25 10:02 Potassium 4.0 mmol/L (3.5-5.1) 02/05/25 10:02 Chloride 104 mmol/L (98-107) 02/05/25 10:02 Carbon Dioxide 26 mmol/L (22-29) 02/05/25 10:02 Anion Gap 13.0 (5-19) 02/05/25 10:02 BUN 18 mg/dL (6-20) 02/05/25 10:02 Creatinine 0.9 mg/dL (0.7-1.2) 02/05/25 10:02 GFR Calculation 86.4 mL/min (90-130) L 02/05/25 10:02 Glucose 104 mg/dL (65-115) 02/05/25 10:02 Calculated Osmolality 290 mOsm/kg (285-295) 02/05/25 10:02 Calcium 9.2 mg/dL (8.5-10.5) 02/05/25 10:02 Total Bilirubin 2.2 mg/dL (0.15-1.2) H 02/05/25 10:02 AST 266 U/L (0-40) H 02/05/25 10:02 ALT 425 U/L (0-41) H 02/05/25 10:02 Alkaline Phosphatase 130 U/L (40-130) 02/05/25 10:02 Total Protein 7.1 g/dL (6.6-8.7) 02/05/25 10:02 Albumin 4.2 g/dL (3.5-5.2) 02/05/25 10:02 Globulin 2.9 g/dL (1.3-4.6) 02/05/25 10:02 Lipase 549 U/L (13-60) H 02/05/25 10:02 Urine Color [place] (Yellow) A 02/05/25 10:13 Urine Appearance Turbid (CLEAR) A 02/05/25 10:13 Urine pH 5.5 (5-7) 02/05/25 10:13 Ur Specific [place] 1.020 (1.005-1.030) 02/05/25 10:13 Urine Protein Trace (Negative) A 02/05/25 10:13 Urine Glucose (UA) Negative (Normal) 02/05/25 10:13 Urine Ketones Negative (Negative) 02/05/25 10:13 Urine Blood 3+ (Negative) A 02/05/25 10:13 Urine Nitrate Negative (Negative) 02/05/25 10:13 Urine Bilirubin 1+ (Negative) H 02/05/25 10:13 Urine Urobilinogen 1.0 mg/dL (Negative) 02/05/25 10:13 Ur Leukocyte Esterase 1+ (Negative) A 02/05/25 10:13 Urine RBC >100 /hpf (0-2) H 02/05/25 10:13 Urine WBC 0-5 /hpf (0-5) 02/05/25 10:13 Ur Squamous Epith Cells 0-5 /hpf (0-5) 02/05/25 10:13 Amorphous Sediment Not Reportable 02/05/25 10:13 Urine Bacteria None seen /hpf (NONE) 02/05/25 10:13 Hyaline Casts 1.65 /lpf 02/05/25 10:13 Discharge Plan Discharge Patient Disposition: Xfer Short-Term Hosp Clinical Impression: Acute calculous cholecystitis Condition: Stable Referrals: Juany Malcolm M.D [Primary Care Provider] Patient Instructions: Abdominal Pain (ED) Print Language: Citizen Of [place] Coding Level of Care Code ED Central Supply Technician for Angela Medley
--- NOTE | 2025-02-05 09:56 | PC.PHAR ---
[facility] can get to his current list from his phone
[2025-02-05] MEDS: iohexol 350 mg/mL 500 mL Btl (per mL) IV (10:06)
[2025-02-05 10:09] LABS: Hematocrit 45.9 % (37-53); Hemoglobin 15.40 g/dL (11.27-16.99); Mean Corpuscular HGB Conc 33.6 g/dL (30-55); Mean Corpuscular Hemoglobin 31.8 pg (27-33); Mean Corpuscular Volume 94.8 fl (82-101); Nucleated Red Blood Cells % 0 %; Platelet Count 159 10^3/cmm (157-399); Red Blood Count 4.84 10^6/uL (3.85-5.65); White Blood Count 5.90 10^3/uL (3.29-11.43)
[2025-02-05 10:19] LABS: Glucose Urine UA Negative (Normal); Nitrate Urine Negative (Negative); Specific Gravity, Urine 1.020 (1.005-1.030)
[2025-02-05 10:24] LABS: Add Urine Microscopic? YES
[2025-02-05 10:27] LABS: Alanine Aminotransferase 425 U/L (0-41); Albumin Level 4.2 g/dL (3.5-5.2); Alkaline Phosphatase 130 U/L (40-130); Anion Gap 13.0 (5-19); Aspartate Amino Transferase 266 U/L (0-40); Blood Urea Nitrogen 18 mg/dL (6-20); Calcium 9.2 mg/dL (8.5-10.5); Carbon Dioxide 26 mmol/L (22-29); Chloride 104 mmol/L (98-107); Globulin 2.9 g/dL (1.3-4.6); Glucose 104 mg/dL (65-115); Osmolality Calculated 290 mOsm/kg (285-295); Potassium 4.0 mmol/L (3.5-5.1); Sodium 139 mmol/L (136-145); Total Protein 7.1 g/dL (6.6-8.7)
[2025-02-05 10:28] LABS: UA Slide Review UA Slide Review Perf
--- NOTE | 2025-02-05 10:37 | USR_ITS ---
PROCEDURE INFORMATION: Exam: US Abdomen, Limited; Right Upper Quadrant Exam date and time: 02/05/2025 11:36 AM Age: 59 years old Clinical indication: Abdominal pain; Epigastric; Additional info: Epigastric pain TECHNIQUE: Imaging protocol: Real time ultrasound of the abdomen with image documentation. Limited exam focused on the right upper quadrant. COMPARISON: US renal BI* [id number] 10/22/2021 6:36 AM FINDINGS: Liver: The liver is diffusely hyperechoic consistent with fatty infiltration. However, cirrhosis or diffuse hepatocellular disease could have this appearance, as well. Normal liver size. The small focal hepatic lesions are not identified on this ultrasound. Otherwise, unremarkable. Gallbladder: Several small gallstones in the gallbladder. Diffuse gallbladder wall thickening measuring as much as 5 mm. No pericholecystic fluid. Otherwise, unremarkable. Biliary ducts: Normal. No stones. No dilation. Pancreas: Portions of the pancreas are obscured by bowel gas. The visualized pancreas is unremarkable. Right kidney: Normal. No mass. No hydronephrosis. Aorta: Abdominal aorta mostly obscured by bowel gas. Inferior vena cava: Unremarkable. Portal venous: Normal with hepatopetal flow. US/US gall bladder [id number] IMPRESSION: 1. Several small gallstones in the gallbladder. Diffuse gallbladder wall thickening measuring as much as 5 mm. Cholecystitis should be considered. 2. The liver is diffusely hyperechoic consistent with fatty infiltration. However, cirrhosis or diffuse hepatocellular disease could have this appearance, as well. 3. No other acute findings. 4. Additional details as above.
[2025-02-05 10:39] LABS: Lipase 549 U/L (13-60)
[2025-02-05] MEDS: cefTRIAXone 1,000 mg SDV 1000 MG IVP (13:36)
[2025-02-05] MEDS: HYDROmorphone 0.5 MG/0.5 ML INJ IVP (13:36)
[2025-02-05] MEDS: ondansetron 2 mg/ML SDV 2 mL 4 MG IVP (13:36)
== END 2025-02-05 17:21 | disposition short-term general hospital (02) ==
PROVIDERS: Emergency Provider Physician Assistant; PCP Emergency Medicine
DX: K80.00 Calculus of gallbladder with acute cholecystitis without obstruction (principal)
CPT/HCPCS: 36415; 74177; 76705; 80053; 81001; 83690; 85025; 87086; 96374; 96375; 99285; J0696; J1171; J2405; J7030

== ENCOUNTER 2025-02-19 07:34 | Emergency (ER) | payer OTHER, SELFPAY ==
[2025-02-19 07:39] VITALS: BP 143/73; PULSE 93; RESP 16; TEMP 36.6; O2SAT 96; BMI 41.0
--- NOTE | 2025-02-19 07:39 | CTR_ITS ---
PROCEDURE INFORMATION: Exam: CT Abdomen And Pelvis With Contrast Exam date and time: 02/19/2025 7:43 AM Age: 60 years old Clinical indication: Abdominal pain; Prior surgery; Surgery date: <1 month; Surgery type: Gb; Additional info: Abd pain TECHNIQUE: Imaging protocol: Computed tomography of the abdomen and pelvis with contrast. Radiation optimization: All CT scans at this facility use at least one of these dose optimization techniques: automated exposure control; mA and/or kV adjustment per patient size (includes targeted exams where dose is matched to clinical indication); or iterative reconstruction. Contrast material: OMNI 350; Contrast volume: 100 ml; Contrast route: INTRAVENOUS (IV); COMPARISON: CT abdomen pelvis w con* [id number] 02/05/2025 10:03 AM RADIATION DOSE METRICS: Total DLP (mGy-cm): 1120.3 FINDINGS: Liver: There are a couple of tiny hypoattenuating subcentimeter liver lesions too small to further characterize. Favor benign pathology. Gallbladder and biliary ducts: Cholecystectomy. Negative for biliary system dilation. Pancreas: Normal. No ductal dilation. Spleen: Normal. No splenomegaly. Adrenal glands: Normal. No mass. Kidneys and ureters: Numerous calcified nonobstructing bilateral kidney stones. Numerous small bilateral renal circumscribed cysts, many of which are too small to characterize. Negative for acute perinephric inflammation. Negative for hydroureteronephrosis. Negative for ureteral stones. Stomach and bowel: No inflammatory bowel wall thickening. Negative for bowel obstruction. Negative for bowel perforation. Negative for pneumatosis intestinalis. Appendix: Normal appendix. Intraperitoneal space: Unremarkable. No free air. No significant fluid collection. Vasculature: Unremarkable. No abdominal aortic aneurysm. Lymph nodes: Unremarkable. No enlarged lymph nodes. Urinary bladder: Bladder is grossly unremarkable in appearance. Reproductive: Mild prostatomegaly. Bones/joints: Bilateral L5 pars defects. Grade 1 L5-S1 spondylolisthesis. Moderately severe L5-S1 degenerative disc disease. Negative for acute fractures. Soft tissues: Large right inguinal hernia contains a portion of the bladder. Small circumscribed midline supraumbilical ventral abdominal wall fluid collection presumably postsurgical measures 2.5 cm x 2.7 cm. Favor small postoperative seroma. Small fat containing left inguinal hernia. CT/CT abdomen pelvis w con* [id number] IMPRESSION: Negative for acute abdominopelvic pathology. COMMENTS: Consistent with the [employer]'s Incidental Findings Committee white paper (J Am Mil Radiol 2018): Any incidental renal lesion less than 1 cm or classified as too small to characterize, or any incidental cystic renal lesion characterized as simple-appearing, is likely benign. No follow-up imaging is recommended for these lesions per consensus recommendations based on imaging criteria.
--- NOTE | 2025-02-19 07:39 | W.ED.ABDPA2 ---
HPI - Abdominal Pain General: Chief Complaint: Abdominal Pain Stated Complaint: pain post gall bladder removal Time Seen by Provider: 02/19/25 07:36 Source: patient Mode of arrival: ambulatory Limitations: no limitations History of Present Illness: 60-year-old male who has a history of having a laparoscopic cholecystectomy on February 08. States had been doing well but over the last 2 days started having increased right upper quadrant pain. States this morning his pain is a 6 out of 10 much worse with palpation. He denies any vomiting denies any fevers. Related Data Home Medications ?Medication ?Instructions ?Recorded ?Confirmed allopurinol 300 mg tablet 300 mg PO DAILY 02/05/25 02/05/25 anastrozole 1 mg tablet 1 mg PO .Q7D 02/05/25 02/05/25 cholecalciferol (vitamin D3) 50 50 mcg PO DAILY 02/05/25 02/05/25 mcg (2,000 unit) tablet clomiphene citrate 50 mg tablet 25 mg PO DAILY 02/05/25 02/05/25 fexofenadine 180 mg tablet 180 mg PO DAILY 02/05/25 02/05/25 levothyroxine 25 mcg tablet 25 mcg PO DAILY 02/05/25 02/05/25 lisinopril 10 1 tab PO DAILY 02/05/25 02/05/25 mg-hydrochlorothiazide 12.5 mg tablet riboflavin (vitamin B2) 100 mg 200 mg PO DAILY 02/05/25 02/05/25 tablet sertraline 100 mg tablet 50 mg PO DAILY 02/05/25 02/05/25 tamsulosin 0.4 mg capsule 0.8 mg PO DAILY 02/05/25 02/05/25 tirzepatide (weight loss) 15 15 mg SUBCUT Q7D 02/05/25 02/05/25 mg/0.5 mL subcutaneous pen injector Allergies Allergy/AdvReac Type Severity Reaction Status Date / Time No Known Allergies Allergy Verified 09/21/24 14:26 Physical Exam Const: COMMON NORMALS: patient oriented x3 HENMT: COMMON NORMALS: normocephalic and atraumatic HEAD & SCALP: normocephalic and atraumatic Neck/C-Spine: COMMON NORMALS: full ROM and supple Chest: COMMONS NORMALS: normal inspection of the chest and normal palpation of entire chest wall Resp: COMMON NORMALS: normal respiratory effort, No retractions, No use of accessory muscles and clear to auscultation bilaterally AUSCULTATION: clear to auscultation bilaterally Cardio: COMMON NORMALS: regular rate, regular rhythm and No murmurs present (Cardio) RATE: regular rate RHYTHM: regular rhythm GI: COMMON NORMALS: Normal to inspection, nondistended, normoactive bowel sounds present, Soft to palpation and no masses PALPATION: Yes Soft to palpation and Yes Tenderness to palpation present (GI) Details: RUQ Extremity: COMMON NORMALS: normal to inspection and full ROM Neuro: COMMON NORMALS: patient oriented x3, moves all extremities and no focal motor deficits Psych: COMMON NORMALS: mental status grossly normal, Normal thought process present and cooperative THOUGHT PROCESS: Normal thought process present Skin: COMMON NORMALS: no rashes or lesions noted and no wounds GENERAL SKIN EXAM: no rashes or lesions noted Course Vital Signs: Vital signs: Vital Signs Temperature 97.9 F 02/19/25 07:39 Pulse Rate 93 02/19/25 07:39 Respiratory Rate 16 02/19/25 08:02 Blood Pressure 143/73 02/19/25 07:39 Pulse Oximetry 97 02/19/25 08:02 Oxygen Delivery Me thod Room Air 02/19/25 07:39 MDM - Abdominal Pain Medical Decision Making Patient presents with abdominal pain differential includes pancreatitis, small bowel obstruction, postop infection. Did review his CT scan here showed no acute abnormalities. Blood work here shows no significant abnormalities with a normal white count no signs of infection his pain has improved here likely some postop pain he stable for discharge he is follow-up with surgeon in 3 to 5 days return if worsening he understands agrees to plan. Medical Records I reviewed the patient's medical records. Lab Data I reviewed the patient's lab results. 02/19/25 07:44 02/19/25 07:44 Labs/Radiology: Radiology Impressions Abdomen/Pelvis CT 02/19/25 07:39 IMPRESSION: Negative for acute abdominopelvic pathology. COMMENTS: Consistent with the [employer]'s Incidental Findings Committee white paper (J Am Mil Radiol 2018): Any incidental renal lesion less than 1 cm or classified as too small to characterize, or any incidental cystic renal lesion characterized as simple-appearing, is likely benign. No follow-up imaging is recommended for these lesions per consensus recommendations based on imaging criteria. Laboratory Results WBC 7.49 10^3/uL (3.29-11.43) 02/19/25 07:44 RBC 4.56 10^6/uL (3.85-5.65) 02/19/25 07:44 Hgb 14.60 g/dL (11.27-16.99) 02/19/25 07:44 Hct 43.4 % (37-53) 02/19/25 07:44 MCV 95.2 fl (82-101) 02/19/25 07:44 MCH 32.0 pg (27-33) 02/19/25 07:44 MCHC 33.6 g/dL (30-55) 02/19/25 07:44 RDW 13.1 % (12.1-15.1) 02/19/25 07:44 Plt Count 153 10^3/cmm (157-399) L 02/19/25 07:44 MPV 8.8 fL (7.4-10.4) 02/19/25 07:44 Neut % (Auto) 72.0 % 02/19/25 07:44 Lymph % (Auto) 19.6 % 02/19/25 07:44 [place] % (Auto) 5.2 % 02/19/25 07:44 Eos % (Auto) 2.1 % 02/19/25 07:44 Baso % (Auto) 0.8 % 02/19/25 07:44 Neut # (Auto) 5.39 10^3/uL (1.8-7.7) 02/19/25 07:44 Lymph # (Auto) 1.5 10^3/uL (0.8-4.8) 02/19/25 07:44 [place] # (Auto) 0.4 10^3/uL (0.2-0.9) 02/19/25 07:44 Eos # (Auto) 0.2 10^3/uL (0.0-0.8) 02/19/25 07:44 Baso # (Auto) 0.1 10^3/uL (0.0-0.1) 02/19/25 07:44 Nucleated RBC % (auto) 0 % 02/19/25 07:44 Nucleated RBCs # 0.0 /100WBC 02/19/25 07:44 Sodium 139 mmol/L (136-145) 02/19/25 07:44 Potassium 3.8 mmol/L (3.5-5.1) 02/19/25 07:44 Chloride 103 mmol/L (98-107) 02/19/25 07:44 Carbon Dioxide 25 mmol/L (22-29) 02/19/25 07:44 Anion Gap 14.8 (5-19) 02/19/25 07:44 BUN 15 mg/dL (8-23) 02/19/25 07:44 Creatinine 1.1 mg/dL (0.7-1.2) 02/19/25 07:44 GFR Calculation 68.3 mL/min (90-130) L 02/19/25 07:44 Glucose 175 mg/dL (65-115) H 02/19/25 07:44 Calculated Osmolality 293 mOsm/kg (285-295) 02/19/25 07:44 Calcium 8.9 mg/dL (8.5-10.5) 02/19/25 07:44 Total Bilirubin 0.3 mg/dL (0.15-1.2) 02/19/25 07:44 AST 17 U/L (0-40) 02/19/25 07:44 ALT 22 U/L (0-41) 02/19/25 07:44 Alkaline Phosphatase 57 U/L (40-130) 02/19/25 07:44 Total Protein 6.6 g/dL (6.6-8.7) 02/19/25 07:44 Albumin 4.1 g/dL (3.5-5.2) 02/19/25 07:44 Globulin 2.5 g/dL (1.3-4.6) 02/19/25 07:44 Lipase 65 U/L (13-60) H 02/19/25 07:44 All radiology interpretation(s) finalized by discharge Discharge Plan Discharge Patient Disposition: Home Clinical Impression: Abdominal pain Condition: Stable Prescriptions: No Action anastrozole 1 mg Tablet 1 mg PO .Q7D Rx Instructions: Mondays riboflavin (vitamin B2) 100 mg Tablet 200 mg PO DAILY clomiphene citrate 50 mg Tablet 25 mg PO DAILY sertraline 100 mg Tablet 50 mg PO DAILY fexofenadine 180 mg Tablet 180 mg PO DAILY levothyroxine 25 mcg Tablet 25 mcg PO DAILY tamsulosin 0.4 mg Capsule 0.8 mg PO DAILY allopurinol 300 mg Tablet 300 mg PO DAILY lisinopril-hydrochlorothiazide 10-12.5 mg Tablet 1 tab PO DAILY cholecalciferol (vitamin D3) 50 mcg (2,000 unit) Tablet 50 mcg PO DAILY tirzepatide (weight loss) 15 mg/0.5 mL Pen Injector 15 mg SUBCUT Q7D Rx Instructions: Thursday Discharge Orders: Discharge ED (Routine); Ordered 02/19/25 Ordered By: Gustavo Gilliam Referrals: Juany Malcolm M.D [Primary Care Provider] - 4-7 days Discharge Diet: Advance as tolerated Discharge Activity: Resume usual activity Patient Instructions: Abdominal Pain (ED) Print Language: Chinese Coding Level of Care Code ED Mechanic General Operational Test for Angela Medley
--- OUTSIDE RECORDS SUMMARY | 2025-02-19 07:39 | XMS_ITS | Clinical Summary ---
Author Organization [facility] Address [address] [place] [address] Phone Care Team Providers Care Cast Iron Dipper Name Role Phone Juany Malcolm MD Primary [...] 1978 Depression Screening 1983 Diabetes Screening 1983 Hepatitis C Screening 1983 Social Drivers of Health (SDoH) 1983 Hepatitis A Vaccines (1 of 2 - Risk 2-dose series) 02/15/1984 RSV Vaccines (1 - Risk 50-74 years 1-dose series) 2015 COVID-19 Vaccines ( - 2024- season) 2024 Influenza Vaccine (#1) 2024 , 11/11/2022, 01/02/2021, Additional history exists Hepatitis B Vaccines (1 of 3 - Risk 3-dose series) 2025 DTaP,Tdap,and Td Vaccines (6 - Td or Tdap) 01/02/2031 01/02/2021, 12/12/2016, 05/21/2011, Additional history exists Zoster Vaccines Completed 01/02/2021, 06/04/2020 Pneumococcal Vaccines: [...] patient's age to complete this topic Insurance [facility] [employer] Care Teams Cast Iron Dipper Relationship Specialty Start Date End Date Juany Malcolm MD PCP - General Family Medicine 06/17/24
--- OUTSIDE RECORDS SUMMARY | 2025-02-19 07:39 | XMS_ITS | Encounter Summary ---
Author Organization [facility] Address [address] [place] [address] Care Team Providers Care Svp Name Role Phone Unavailable Primary Care Provider Unavailabl e Encounter Details Date Type Department Care Team (Late st Contact Info) Description 02/09/2025 Orders Only [facility] Health Information Management [place] [address] [place] [id number] Provider, Abstract NO ADDRESS ON FILE Social History Tobacco Use Types Packs/Day Years Used Date Smoking Tobacco: Never Smokeless Tobacco: Never Alcohol Use Standard Drinks/Week Comments Never 0 (1 standard drink = 0.6 oz pur e alcohol) Food Insecurity Answer Date Recorded Do you find you are eating l ess than you should because you can t pay for food? No 02/05/2025 Transportation Needs Answer Date Record ed Have you gone without health care because you didn t have a way to get there? Or worry about transportation for future doctor visits, fern picker medication, etc.? No 2024 Housing Stability Answer Date Recorded Do you worry you won t have a steady place to sleep or struggle to pay rent or mortgage? No 02/05/2025 Utility Needs Answer Date Recorded Do you have difficulty payin g for utility costs (electric, water or gas bills)? No 02/05/2025 Medication Needs Answer Date Recorded Have you skipped taking medi cation due to cost or worry you can t afford new medications? No 02/05/2025 Feeling Safe Answer Date Recorded Are you in a relationship wi th someone who hurts you emotionally and/or physically? No 02/05/2025 Food Insecurity Answer Date Recorded Patient needs follow up regardin 02/05/2025 Transportation Needs Answer Date Record ed Patient needs follow up regardin 02/05/2025 Utility Needs Answer Date Recorded Patient needs follow up regardin 02/05/2025 Sex and Gender Information Value Date Recorded Sex Assigned at Not on file Legal Sex Male 2:58 AM PATENT SEARCHER Gender Identity Not on file Sexual Orientation Not on file documented as of this encounter Plan of Treatment Upcoming Encounters Date Type Department Care Team (Late st Contact Info) Description 02/22/2025 2:30 PM PATENT SEARCHER Office Visit [facility] General and Trauma Surgery[address] [place] [address] Felipa Freitas NP [address] [place] [address] [address] [place] [address] documented as of this encounter Procedures Procedure Name Priority Date/Time Associated Diagnosis Comments COMPREHENSIVE METABOLIC PANEL Routine 02/05/2025 1:47 PM PATENT SEARCHER documented in this encounter Results * COMPREHENSIVE METABOLIC PANEL (02/05/2025 1:47 PM PATENT SEARCHER) Blood us Abstract Provider CHEMISTRY ORDERABLES Final Res ult documented in this encounter Visit Diagnoses Not on filedocumented in this encounter
--- OUTSIDE RECORDS SUMMARY | 2025-02-19 07:39 | XMS_ITS | Clinical Summary ---
Author Organization [facility] Address [address] [facility] Attn: Epic Prelude ADT GRACIE FRAZIER [id number] Care Team Providers Care Network Strategist Name Role Phone Unavailable Primary Care Provider Unavailabl e Allergies Active Allergy Reactions Criticality Noted Date Comments Metformin Diarrhea Low 11/16/2015 Medications allopurinoL (ZYLOPRIM) 300 mg tablet Take 300 mg by mouth daily. Active anastrozole (ARIMIDEX) 1 mg tablet Take 1 mg by mouth every 7 days. Active cholecalciferol, Vitamin D3, 50 mcg (2,000 unit) Tablet Take 2,000 Units by mouth daily. Active clomiPHENE citrate (CLOMID) 50 mg tablet Take 50 mg by mouth daily. Active fexofenadine (DELMAR) 180 mg tablet Take 180 mg by mouth daily. Active levothyroxine 25 mcg tablet Take 25 mcg by mouth daily in the morning. Active lisinopril-hydroC HLOROthiazide (ZESTORETIC) 10-12.5 mg tablet Take 1 Tablet by mouth daily. Active riboflavin, VITAMIN B2, 100 mg Tablet Take 100 mg by mouth daily. Active sertraline (ZOLOFT) 100 mg tablet Take 50 mg by mouth daily. Active tamsulosin (FLOMAX) 0.4 mg capsule Take 0.4 mg by mouth daily. Active tirzepatide (MOUNJARO) 15 mg/0.5 mL Pen Injector Inject 15 mg by subcutaneous injection every 7 days. Active aspirin (ECOTRIN EC) 81 mg Tablet, Delayed Release (E.C.) Take 81 mg by mouth daily. 12/17/19 25 Active sildenafiL (VIAGRA) 100 mg tablet Take 100 mg by mouth 1 time daily as needed for Erectile Dysfunction. 06/16/19 25 Active ondansetron (ZOFRAN ODT) 4 mg Tablet, Rapid Dissolve Take 1 Tablet (4 mg) by mouth every 8 hours as needed for Nausea. Dissolve tablet on top of tongue, then swallow with saliva. 5 Tablet 02/09/20 25 Active oxyCODONE (ROXICODONE) 5 mg tabletIndications :Calculus of gallbladder with acute cholecystitis and obstruction Take 1 Tablet (5 mg) by mouth every 4 hours as needed for Pain. Max Daily Amount: 30 mg 3 Tablet 02/09/20 25 Active Active Problems Problem Noted Date Diagnosed Date Benign essential hypertension 02/05/2025 Gastroesophageal reflux disease 02/05/2025 Gout 02/05/2025 Hyperlipidemia 02/05/2025 Impaired glucose tolerance 02/05/2025 Obstructive sleep apnea syndrome in adult 2024 Migraine, unspecified, not i ntractable, without status migrainosus 02/05/2025 Dependence on continuous pos itive airway pressure ventilation 02/05/2025 Overview (02/05/2025): Mar 27, 2017 Entered By: KYLER HOLLOWAY Comment: CPAP A-Trial for 7 days 13-17 cmH2O Hernia of anterior abdominal wall 02/05/2025 History of renal calculi 02/05/2025 Morbid obesity 02/05/2025 Male hypogonadism 02/05/2025 Hematuria 02/05/2025 Transaminitis 02/05/2025 Hyperbilirubinemia 02/05/2025 Bilateral inguinal hernia without obstruction or gangrene 02/05/2025 Hepatic steatosis 02/05/2025 Calculus of gallbladder with acute cholecystitis and obstruction 02/05/2025 Nodule of lower lobe of right lung 02/05/2025 Hepatic lesion- reccd follow up 02/05/2025 Acquired hypothyroidism 02/05/2025 Resolved Problems Problem Noted Date Diagnosed Date Resolved Date Acute biliary pancreatitis w ithout infection or necrosis 02/05/2025 02/08/2025 Encounters Date Type Department Care Team Description 02/09/2025 Orders Only [facility] Information Management [place] [address] [place] [address] Provider, Abstract 02/07/2025 7:24 PM SHEET CUTTER Anesthesia Event [facility] Operating Room [address] [place] [phone] Ford Godinez MD Bell, Leslie, CRNA 02/07/2025 7:00 PM SHEET CUTTER - 02/07/2025 8:58 PM SHEET CUTTER Surgery [facility] Operating Room [facility] [place] [phone] Lino Askew MD CHOLECYSTECTOMY LAPAROSCOPIC 02/07/2025 External Device Data ST[facility] ABSTRACTION Provider, Abstract 02/07/2025 External Device Data [facility] ABSTRACTION Provider, Abstract 02/07/2025 External Device Data [facility] ABSTRACTION Provider, Abstract 02/05/2025 6:50 PM SHEET CUTTER - 02/08/2025 1:25 PM SHEET CUTTER Hospital Encounter [facility] 3D Medical Telemetry [address] [place] [phone] Jaspal Aguilar MD Sundaram, Vignesh, MD Kuppi Reddy, Madhavi, MD Calculus of gallbladder with acute cholecystitis and obstruction Discharge Disposition: Home or Self Care 02/05/2025 Travel from Last 3 Months Immunizations Immunization Administration Dates Next Due (TDVAX)(7 YRS UP) TETANUS AN D DIPHTHERIA TOXOIDS, ADSORBED (2 LF OF TETANUS TOXOID AND 2 LF OF DIPHTHERIA TOXOID), 0.5ML (PF), IM 06/22/1998 Social History Tobacco Use Types Packs/Day Years Used Date Smoking Tobacco: Never Smokeless Tobacco: Never Tobacco Cessation:Counseling Given: Not Answered Alcohol Use Standard Drinks/Week Comments Never 0 [...] worry about transportation for future doctor visits, medicinal plant picker medication, etc.? No 2024 Housing Stability [...] on file Legal Sex Male 2:58 AM SHEET CUTTER Gender Identity Not on file Sexual Orientation Not on file Last Filed Vital Signs Vital Sign Reading Time Taken Comments Blood Pressure 140/71 02/08/2025 7:45 AM SHEET CUTTER Pulse 57 02/08/2025 7:45 AM SHEET CUTTER Temperature 36.6 C (97.8 F) 02/08/2025 7:45 AM SHEET CUTTER Respiratory Rate 15 02/08/2025 7:45 AM SHEET CUTTER Oxygen Saturation 93% 02/08/2025 8:00 AM SHEET CUTTER Inhaled Oxygen Concentration - - Weight 126 kg (277 lb 12.5 oz) 02/05/2025 11:42 PM SHEET CUTTER Height 172.7 cm (5' 8 ) 02/05/2025 11:42 PM SHEET CUTTER Body Mass Index 42.24 02/05/2025 11:42 PM SHEET CUTTER Plan of Treatment Upcoming Encounters Date Type Department Care Team (Late st Contact Info) Description 02/22/2025 2:30 PM SHEET CUTTER Office Visit [facility] General and Trauma Surgery[address] [place] [address] Felipa Freitas NP [address] [facility] [address] [place] [address] Health Maintenance Due Date Last Done Comments Pre-Diabetes and Diabetes Screening 1965 COLORECTAL SCREENING 2010 Colorectal Cancer Screening 2010 FIT-DNA Q 3 years 2010 FIT/FOBT Q 1 year 2010 Flex Sig/CT Colonography Q 5 years 2010 RSV VACCINE (60+ or ) (1 - Risk 50-74 years 1-dose series) 2015 INFLUENZA VACCINE (#1) 2024 4, 11/11/2022, 01/02/2021, Additional history exists COVID-19 Vaccine (3 - 2024-2 6 season) 2024 05/01/2020, 04/04/2020 HEPATITIS B VACCINES (1 of 3 - Risk 3-dose series) 2025 DTAP/TDAP/TD VACCINES (5 - T d or Tdap) 01/02/2031 01/02/2021, 12/12/2016, 05/21/2011, Additional history exists ZOSTER VACCINE Completed 01/02/2021, 06/04/2020 Procedures Procedure Name Priority Date/Time Associated Diagnosis Comments TELEMETRY REPORT 02/09/2025 2:29 AM SHEET CUTTER COMPREHENSIVE METABOLIC PANEL Routine 02/08/2025 12:55 AM SHEET CUTTER CBC WITH DIFFERENTIAL Routine 02/08/2025 12:55 AM SHEET CUTTER POC GLUCOSE Routine 02/07/2025 9:01 PM SHEET CUTTER PATHOLOGY Pathology 02/07/2025 8:20 PM SHEET CUTTER ND ANES INSERT ENDOTRACHEAL AIRWAY Routine 02/07/2025 7:35 PM SHEET CUTTER ND LAPAROSCOPY SURG CHOLECYSTECTOMY 02/07/2025 7:00 PM SHEET CUTTER n/a CBC WITHOUT DIFFERENTIAL Routine 02/07/2025 2:03 AM SHEET CUTTER COMPREHENSIVE METABOLIC PANEL Routine 02/07/2025 2:03 AM SHEET CUTTER MRI ABDOMEN W WO CONTRAST Stat 02/06/2025 4:29 PM SHEET CUTTER TRIGLYCERIDE Routine 02/06/2025 1:21 AM SHEET CUTTER COMPREHENSIVE METABOLIC PANEL Routine 02/06/2025 1:21 AM SHEET CUTTER EXTRA TUBE (URINE SCHWAB) Routine 02/06/20 11:15 PM SHEET CUTTER URINALYSIS W/REFLEX MICROSCOPIC Routine 02/05/2025 11:15 PM SHEET CUTTER URINE CULTURE Routine 02/05/2025 11:15 PM SHEET CUTTER LIPASE Routine 02/05/2025 9:59 PM SHEET CUTTER MAGNESIUM LEVEL Routine 02/05/2025 9:59 PM SHEET CUTTER COMPREHENSIVE METABOLIC PANEL Routine 02/05/2025 9:59 PM SHEET CUTTER PROTIME-INR Routine 02/05/2025 9:59 PM SHEET CUTTER CBC WITH DIFFERENTIAL Routine 02/05/2025 9:59 PM SHEET CUTTER POC GLUCOSE Routine 02/05/2025 9:24 PM SHEET CUTTER EKG 12-LEAD Routine 02/05/2025 8:37 PM SHEET CUTTER COMPREHENSIVE METABOLIC PANEL Routine 02/05/2025 1:47 PM SHEET CUTTER from Last 3 Months Results * TELEMETRY REPORT (02/09/2025 2:29 AM SHEET CUTTER) us Provider Scanning ECG ORDERABLES Final Result * (ABNORMAL) CBC WITH DIFFERENTIAL (02/08/2025 12:55 AM SHEET CUTTER) Only the most recent of2 resultswithin the time period is included. WBC 8.7 4.8 - 10.8 K/uL 02/08/2025 1:31 AM SHEET CUTTER [facility] RBC 4.56(L) 4.60 - 6.20 M/uL 02/08/2025 1:31 AM SHEET CUTTER [facility] HEMOGLOBIN 14.4 14.0 - 18.0 g/dL 02/08/2025 1:31 AM SHEET CUTTER [facility] HEMATOCRIT 43.6 41.0 - 53.0 % 02/08/2025 1:31 AM [facility] [employer] [facility] MCV 95.6 84.0 - 103.0 fL 02/08/2025 1:31 AM [facility] MCH 31.6 27.0 - 34.0 pg 02/08/2025 1:31 AM [facility] MCHC 33.0 30.0 - 35.0 g/dL 02/08/2025 1:31 AM [facility] PLATELETS 129(L) 140 - 440 K/uL 02/08/2025 1:31 AM [facility] MPV 9.0 8.9 - 12.8 fL 02/08/2025 1:31 AM [facility] RDW 13.2 11.0 - 14.5 % 02/08/2025 1:31 AM [facility] [employer] [facility] RDW-STDEV 46.9 37.0 - 54.0 fL 02/08/2025 1:31 AM [facility] [employer] [facility] NEUTROPHILS 89(H) 42 - 75 % 02/08/2025 1:31 AM [facility] LYMPHOCYTES 8(L) 24 - 44 % 02/08/2025 1:31 AM [facility] MONOCYTES 2 2 - 10 % 02/08/2025 1:31 AM [facility] [employer] [facility] EOSINOPHILS 0 0 - 7 % 02/08/2025 1:31 AM [facility] [employer] [facility] BASOPHILS 0 0 - 1 % 02/08/2025 1:31 AM [facility] [employer] [facility] IMMATURE GRANULOCYTES 1 0 - 2 % 02/08/2025 1:31 AM [facility] [employer] [facility] NEUTROPHIL ABSOLUTE 7.77 2.00 - 8.00 K/uL 02/08/2025 1:31 AM [facility] LYMPHOCYTE ABSOLUTE 0.68(L) 1.20 - 4.00 K/uL 02/08/2025 1:31 AM [facility] [employer] [facility] MONOCYTE ABSOLUTE 0.15 0.10 - 0.60 K/uL 02/08/2025 1:31 AM SHEET CUTTER [facility] EOSINOPHIL ABSOLUTE 0.02 0.00 - 0.70 K/uL 02/08/2025 1:31 AM [facility] BASOPHILS ABSOLUTE 0.03 0.00 - 0.20 K/uL 02/08/2025 1:31 AM [facility] IMMATURE GRANULOCYTES ABSOLUTE 0.06 0.00 - 0.10 K/uL 02/08/2025 1:31 AM [facility] SMEAR REVIEWED: NN - No Action Needed 02/08/2025 1:31 AM [facility] Blood Venipuncture / Unknown 02/08/2025 12:55 AM SHEET CUTTER 02/08/2025 1:20 AM SHEET CUTTER Anderson Edwards PA-C HEMATOLOGY ORDERABLES Fi nal Result [facility] CLIA # [id number] [facility] [address] * (ABNORMAL) COMPREHENSIVE METABOLIC PANEL (02/08/2025 12:55 AM SHEET CUTTER) Only the most recent of5 resultswithin the time period is included. SODIUM 138 136 - 145 mmol/L 02/08/2025 1:54 AM [facility] POTASSIUM 3.5 3.5 - 5.1 mmol/L 02/08/2025 1:54 AM [facility] CHLORIDE 105 98 - 107 mmol/L 02/08/2025 1:54 AM [facility] CO2 22 22 - 29 mmol/L 02/08/2025 1:54 AM [facility] CALCIUM 8.2(L) 8.6 - 10.0 mg/dL 02/08/2025 1:54 AM [facility] BUN 11 6 - 20 mg/dL 02/08/2025 1:54 AM [facility] CREATININE 0.80 0.67 - 1.17 mg/dL 02/08/2025 1:54 AM [facility] GLUCOSE 117(H) 74 - 99 mg/dL 02/08/2025 1:54 AM [facility] TOTAL PROTEIN 6.1(L) 6.4 - 8.3 g/dL 02/08/2025 1:54 AM [facility] ALBUMIN 3.5 3.5 - 5.2 g/dL 02/08/2025 1:54 AM [facility] BILIRUBIN TOTAL 0.4 0.0 - 1.0 mg/dL 02/08/2025 1:54 AM [facility] ALKALINE PHOSPHATASE 98 40 - 129 U/L 02/08/2025 1:54 AM [facility] AST 61(H) 10 - 50 U/L 02/08/2025 1:54 AM [facility] ALT 202(H) <=50 U/L 02/08/2025 1:54 AM [facility] GFR >60 >=60 mL/min/1.7 3 sq meter 02/08/2025 1:54 AM [facility] Comment:eGFR calculated with 2020 CKD-EPI equation. Vegetarian diet, extremely high or low muscle mass, and may affect results. Cystatin C with Glomerular Filtration Rate is a suitable alternative for these patients. ANION GAP 11 9 - 20 mmol/L 02/08/2025 1:54 AM [facility] Blood Venipuncture / Unknown 02/08/2025 12:55 AM SHEET CUTTER 02/08/2025 1:22 AM SHEET CUTTER us Anderson Edwards PA-C CHEMISTRY ORDERABLES Fin al Result [facility] CLIA # [id number] [address] [place] [address] * POC GLUCOSE (02/07/2025 9:01 PM SHEET CUTTER) Only the most recent of2 resultswithin the time period is included. [facility] GLUCOSE POC 97 74 - 99 mg/dL 02/07/2025 9:01 PM SHEET CUTTER [facility] SPECIMEN SOURCE, GLUCOSE POC Capillary 02/07/2025 9:01 PM SHEET CUTTER [facility] Blood, whole 02/07/2025 9:01 PM SHEET CUTTER 02/07/2025 9:08 PM SHEET CUTTER Latanya Francisco MD POINT OF CARE TESTING Fin al Result [facility] CLIA # [id number] [address] [address] [place] [address] * PATHOLOGY (02/07/2025 8:20 PM SHEET CUTTER) CASE REPORT Surgical Pathology Report Case: [id number] Authorizing Provider: Lino Askew MD Collected: 02/07/2025 08:20 PM Ordering Location: [facility] Received: 02/08/2025 08:10 AM Operating Room Pathologist: Annalise Emanuel MD Specimen: Gallbladder 9:36 AM [facility] FINAL DIAGNOSIS A. Gallbladder, laparoscopic cholecystectomy - Chronic calculous cholecystitis - Cholesterolosis with small cholesterol polyp Annalise Emanuel MD [id number] 9:36 AM [facility] at 0936 SHEET CUTTER GROSS DESCRIPTION A. Received in formalin labeled Gómez - gallbladder is a 6 x 3 x 2.5 cm, intact gallbladder. The serosa is fatty. The specimen is opened to reveal 4 white-grimaldo, lobulated calculi averaging 0.5 cm in greatest dimension. There is a 0.1 cm polyp. The mucosa is granular. No lymph node is identified.. Lip Of Shank Cutter sections are submitted as follows: A1: Cystic duct margin, en face and gallbladder neck with granular mucosa A2: Gallbladder body with granular mucosa A3: Gallbladder fundus with granular mucosa A4: Entire mucosal polyp Grossed by: Haily Worthington MS, PA (ASCP) 9:36 AM [facility] OPERATIVE PROCEDURE 1: CHOLECYSTECTOMY LAPAROSCOPIC 5 9:36 AM [facility] CLINICAL INFORMATION None provided 5 9:36 AM [facility] COMMENT The [employer] voice-activated dictation system may have been used in the creation of this report. Inherent to this system is the possibility of errors in syntax, grammar, punctuation, or other areas that could impact interpretation. If there are interpretive questions about the report, please contact the performing pathologist. Unless gross only is specified in the diagnosis, the microscopic examination substantiates the above cited diagnosis. The performance characteristics of all immunohistochemical stains cited in this report (if any) were determined by the Diagnostic Immunohistochemistry Laboratory of [facility] in compliance with CLIA'88 regulations. Some of these tests rely on the use of analyte specific reagents and are subject to specific labeling requirements by the FDA. All controls show appropriate reactivity. This testing was developed by the Diagnostic Immunohistochemistry Laboratory of [facility]. It has not been cleared or approved by the FDA. The FDA has determined that such clearance or approval is not necessary. 5 9:36 AM [facility] Tissue ENTIRE GALLBLADDER / Unknown Collection / Unknown 02/07/2025 8:20 PM SHEET CUTTER 02/08/2025 8:10 AM SHEET CUTTER us Lino Askew MD PATHOLOGY/CYTOLOGY ORDERABLE S Final Result [facility] CLIA # [id number] [address] [place] [address] * ND ANES INSERT ENDOTRACHEAL AIRWAY (02/07/2025 7:35 PM SHEET CUTTER) Narrative Kandace Perez CRNA - 02/07/2025 7:35 PM SHEET CUTTER Kandace Perez CRNA 02/07/2025 7:42 PM Airway Date/Time: 02/07/2025 7:35 PM Location: OR Plan: routine intubation Patient Identity Confirmed by: Verbally with patient and armband Staffing Performed: PRESS TENDER SMOKE SIGNAL/CAA Authorized by: Ford Godinez MD Performed by: Kandace Perez CRNA Indications and Patient Condition: Indications for Airway Management: Anesthesia Sedation Level: general anesthesia Preoxygenated: yes Patient Position: Sniffing Mask Difficulty Assessment: 3 - difficult mask (inadequate, unstable or two providers) +/- NMBA Plan to extubate at end of case: Yes Final Airway Details: Final Airway Type: Endotracheal airway ETT Cuffed: Yes Cuff Volume (mL): 5 Technique Used for Successful ETT Placement: Video laryngoscopy Devices/Methods Used in Placement: Cricoid pressure and intubating stylet Blade Size: 4 Insertion Site: Oral ETT Size (mm): 7.5 Video Laryngoscopy Devices: Jeter Measured from: Teeth ETT to Teeth (cm): 23 Tube secured with: Tape Placement Verified by: auscultation, end tidal CO2 and chest rise Cormack-Lehane Classification: Grade IIa - partial view of glottis Number of Attempts at Approach: 1 Additional Procedure Information: atraumatic and dentition unchanged Additional Comments: ETT passed easily, head neutrality maintained, cords clear. Ford Godinez MD PROCEDURE/MINOR SURGICAL ORDERA BLES Final Result * (ABNORMAL) CBC WITHOUT DIFFERENTIAL (02/07/2025 2:03 AM SHEET CUTTER) WBC 5.2 4.8 - 10.8 K/uL 02/07/2025 2:42 AM [facility] RBC 4.21(L) 4.60 - 6.20 M/uL 02/07/2025 2:42 AM [facility] HEMOGLOBIN 13.4(L) 14.0 - 18.0 g/dL 02/07/2025 2:42 AM [facility] HEMATOCRIT 40.4(L) 41.0 - 53.0 % 02/07/2025 2:42 AM [facility] MCV 96.0 84.0 - 103.0 fL 02/07/2025 2:42 AM [facility] MCH 31.8 27.0 - 34.0 pg 02/07/2025 2:42 AM [facility] MCHC 33.2 30.0 - 35.0 g/dL 02/07/2025 2:42 AM [facility] PLATELETS 134(L) 140 - 440 K/uL 02/07/2025 2:42 AM [facility] MPV 9.2 8.9 - 12.8 fL 02/07/2025 2:42 AM [facility] RDW 13.6 11.0 - 14.5 % 02/07/2025 2:42 AM [facility] RDW-STDEV 48.1 37.0 - 54.0 fL 02/07/2025 2:42 AM [facility] Blood Venipuncture / Unknown 02/07/2025 2:03 AM SHEET CUTTER 02/07/2025 2:31 AM SHEET CUTTER us Jessica Araujo IT RECRUITER HEMATOLOGY ORDERABLES F inal Result Performing Organization Address City/State/[facility] Co de Phone Number [facility] CLIA # [id number] [facility] [address] [address] [place] [address] * MRI ABDOMEN W WO CONTRAST (02/06/2025 4:29 PM SHEET CUTTER) Anatomical Region Laterality Modality Abdomen Magnetic Resonan ce 02/06/2025 4:30 PM SHEET CUTTER Impressions 02/06/2025 4:53 PM SHEET CUTTER IMPRESSION: Motion limited study. 1. No definitive acute intra-abdominal abnormalities. 2. Cholelithiasis. 3. The common bile duct is slightly dilated, however there is no visible choledocholithiasis or significant upstream ductal dilatation. This remains of uncertain clinical significance, however if the patient's LFTs remain abnormal and there is persistent concern for a potential biliary obstruction, consider a GI consultation. 4. Hepatic steatosis. 5. Innumerable small cysts scattered throughout both kidneys; correlate clinically for a history of chronic renal disease and/or polycystic disease. Narrative 02/06/2025 4:53 PM SHEET CUTTER EXAM: MRI ABDOMEN W WO CONTRAST DATE/TIME OF EXAM: 02/06/2025 4:29 PM REASON FOR EXAM: ELEVATED LFTS, CHOLELITHIASIS, ELEVATED LIPASE, NEED FURTHER EVAL FOR BILIARY OBSTRUCTION SUCH STONE, MASS, ETC DIAGNOSIS: See Reason for Exam COMPARISON: None. TECHNIQUE: Multiplanar, multisequence MR images of the abdomen were obtained before and after intravenous administration of gadolinium-based contrast. FINDINGS: Motion limited study. - Lower chest: No acute findings. Small hiatal hernia. - Liver: There are limitations secondary to significant motion artifact particularly on dynamic imaging, however there are likely a few tiny cysts in the left hepatic lobe. No acute findings. Findings suggestive of hepatic steatosis. - Gallbladder/Biliary: Common bile duct is slightly dilated measuring up to 7 to 8 mm in diameter; no significant upstream intrahepatic ductal dilatation. Numerous tiny gallstones are present within the gallbladder lumen. The gallbladder is normal in size. No clearly visible choledocholithiasis or filling defects within the extrahepatic bile ducts. - Spleen: Within normal limits. - Pancreas: Within normal limits. - Adrenals: Within normal limits. - Kidneys: The kidneys contain numerous small cysts bilaterally and are borderline small in size. Within the limitations of motion artifact, no definitive enhancing renal neoplasm. No hydronephrosis. - Stomach/bowel: No evidence of a small bowel obstruction. - Peritoneum and retroperitoneum: No ascites or enlarged retroperitoneal lymph nodes. Additional comments: None. Procedure Note Michele Dumont MD - 02/06/2025 EXAM: MRI ABDOMEN W WO CONTRAST DATE/TIME OF EXAM: 02/06/2025 4:29 PM REASON FOR EXAM: ELEVATED LFTS, CHOLELITHIASIS, ELEVATED LIPASE, NEED FURTHER EVAL FOR BILIARY OBSTRUCTION SUCH STONE, MASS, ETC DIAGNOSIS: See Reason for Exam COMPARISON: None. TECHNIQUE: Multiplanar, multisequence MR images of the abdomen were obtained before and after intravenous administration of gadolinium-based contrast. FINDINGS: Motion limited study. - Lower chest: No acute findings. Small hiatal hernia. - Liver: There are limitations secondary to significant motion artifact particularly on dynamic imaging, however there are likely a few tiny cysts in the left hepatic lobe. No acute findings. Findings suggestive of hepatic steatosis. - Gallbladder/Biliary: Common bile duct is slightly dilated measuring up to 7 to 8 mm in diameter; no significant upstream intrahepatic ductal dilatation. Numerous tiny gallstones are present within the gallbladder lumen. The gallbladder is normal in size. No clearly visible choledocholithiasis or filling defects within the extrahepatic bile ducts. - Spleen: Within normal limits. - Pancreas: Within normal limits. - Adrenals: Within normal limits. - Kidneys: The kidneys contain numerous small cysts bilaterally and are borderline small in size. Within the limitations of motion artifact, no definitive enhancing renal neoplasm. No hydronephrosis. - Stomach/bowel: No evidence of a small bowel obstruction. - Peritoneum and retroperitoneum: No ascites or enlarged retroperitoneal lymph nodes. Additional comments: None. IMPRESSION: Motion limited study. 1. No definitive acute intra-abdominal abnormalities. 2. Cholelithiasis. 3. The common bile duct is slightly dilated, however there is no visible choledocholithiasis or significant upstream ductal dilatation. This remains of uncertain clinical significance, however if the patient's LFTs remain abnormal and there is persistent concern for a potential biliary obstruction, consider a GI consultation. 4. Hepatic steatosis. 5. Innumerable small cysts scattered throughout both kidneys; correlate clinically for a history of chronic renal disease and/or polycystic disease. Camryn OLVERA MR ORDERABLES Final Resu lt * TRIGLYCERIDE (02/06/2025 1:21 AM SHEET CUTTER) TRIGLYCERIDE 132 <150 mg/dL 02/06/2025 6:18 PM SHEET CUTTER [facility] [employer] [facility] Blood Venipuncture / Unknown 02/06/2025 1:21 AM SHEET CUTTER 02/06/2025 2:08 AM SHEET CUTTER Narrative [facility] [employer] [facility] - 02/06/2025 6:18 PM SHEET CUTTER TRIGLYCERIDES mg/dL Normal < 150 Borderline High 150 - 199 High 200 - 499 Very High >= 500 Based on AHA/NCEP Guidelines. Latanya Francisco MD CHEMISTRY ORDERABLES Francoise sanchez Result [facility] CLIA # [id number] [address] [address] [place] [address] * EXTRA TUBE (URINE SCHWAB) (02/05/2025 11:15 PM SHEET CUTTER) Urine URINE SPECIMEN OBTAINED BY CLEAN CATCH PROCEDURE / Unknown Collection / Unknown 02/05/2025 11:15 PM SHEET CUTTER 02/05/2025 11:27 PM SHEET CUTTER Fredy Venegas MD URINE ORDERABLES Final Resul t [facility] CLIA # [id number] [address] [place] [address] * (ABNORMAL) URINALYSIS WITH REFLEX MICROSCOPIC (02/05/2025 11:15 PM SHEET CUTTER) COLOR UA Yellow Pale to Dark Yellow 02/06/2025 12:01 AM [facility] CLARITY UA Cloudy(A) Clear 02/06/2025 12:01 AM [facility] SPECIFIC GRAVITY UA 1.031 1.003 - 1.035 02/06/2025 12:01 AM [facility] PH UA 5.5 5.0 - 8.0 02/06/2025 12:01 AM [facility] LEUKOCYTE ESTERASE UA 1+(A) Negative 02/06/2025 12:01 AM [facility] NITRITE UA Negative Negative 02/06/2025 12:01 AM [facility] PROTEIN UA Trace(A) Negative 02/06/2025 12:01 AM [facility] GLUCOSE UA Negative Negative 02/06/2025 12:01 AM [facility] KETONES UA Negative Negative 02/06/2025 12:01 AM [facility] UROBILINOGEN UA <2.0 <2.0 mg/dL 12:01 AM [facility] BILIRUBIN UA Negative Negative 02/06/2025 12:01 AM [facility] BLOOD UA 2+(A) Negative 02/06/2025 12:01 AM [facility] WBC UA 3-5(A) 0 - 2 /hpf 02/06/2025 12:01 AM [facility] RBC UA 26-50(A) 0 - 2 /hpf 02/06/2025 12:01 AM SHEET CUTTER [facility] BACTERIA UA 1+(A) Negative /hpf 02/06/2025 12:01 AM SHEET CUTTER [facility] EPITHELIAL CELLS, URINE 0-5 0 - 5 /hpf 02/06/2025 12:01 AM SHEET CUTTER [facility] Urine URINE SPECIMEN OBTAINED BY CLEAN CATCH PROCEDURE / Unknown Collection / Unknown 02/05/2025 11:15 PM SHEET CUTTER 02/05/2025 11:27 PM SHEET CUTTER us Fredy Venegas MD URINE ORDERABLES Final Resul t [facility] CLIA # [id number] [address] [id number] * URINE CULTURE (02/05/2025 11:15 PM SHEET CUTTER) CULTURE No growth 02/08/2025 4:38 AM SHEET CUTTER [facility] Urine URINE SPECIMEN OBTAINED BY CLEAN CATCH PROCEDURE / Unknown Collection / Unknown 02/05/2025 11:15 PM SHEET CUTTER 02/05/2025 11:27 PM SHEET CUTTER us Latanya Francisco MD MICROBIOLOGY - GENERAL OR DERABLES Final Result [facility] CLIA # [id number] [address] [address] * PROTIME-INR (02/05/2025 9:59 PM SHEET CUTTER) PROTIME 13.9 12.7 - 14.9 Seconds 02/05/2025 10:26 PM SHEET CUTTER [facility] INR 1.0 0.8 - 1.2 02/05/2025 10:26 PM [facility] Blood Venipuncture / Unknown 02/05/2025 9:59 PM SHEET CUTTER 02/05/2025 10:14 PM SHEET CUTTER Narrative [facility] - 02/05/2025 10:26 PM SHEET CUTTER Expected Values for INR: DVT/PE Goal INR 2.5; range 2.0 - 3.0 Valve Replacement Tissue Goal INR 2.5; range 2.0 - 3.0 Valve Replacement Mechanical Goal INR 3.0; range 2.5 - 3.5 POST-ID Goal INR 2.5; range 2.0 - 3.0 or Goal INR 3.0; range 2.5 - 3.5 Atrial Fibrillation Goal INR 2.5; range 2.0 - 3.0 Ischemic Stroke Goal INR 2.5; range 2.0 - 3.0 Fredy Venegas MD HEMATOLOGY ORDERABLES Final Result Performing Organization Address [facility] Co de Phone Number [facility] CLIA # [id number] [address] [address] [place] [address] * MAGNESIUM LEVEL (02/05/2025 9:59 PM SHEET CUTTER) MAGNESIUM 1.9 1.6 - 2.6 mg/dL 02/05/2025 10:49 PM SHEET CUTTER [facility] Blood Venipuncture / Unknown 02/05/2025 9:59 PM SHEET CUTTER 02/05/2025 10:14 PM SHEET CUTTER Fredy Venegas MD CHEMISTRY ORDERABLES Final R esult Performing Organization Address [facility] Co de Phone Number [facility] CLIA # [id number] [address] [place] [address] * (ABNORMAL) LIPASE (02/05/2025 9:59 PM SHEET CUTTER) LIPASE 464(H) 13 - 60 U/L 02/05/2025 11:03 PM SHEET CUTTER [facility] Blood Venipuncture / Unknown 02/05/2025 9:59 PM SHEET CUTTER 02/05/2025 10:14 PM SHEET CUTTER us Fredy Venegas MD CHEMISTRY ORDERABLES Final R esult [facility] CLIA # [id number] [address] [id number] * EKG 12-LEAD (02/05/2025 8:37 PM SHEET CUTTER) 02/05/2025 8:37 PM SHEET CUTTER Narrative INTERFACE SYSTEM - 02/06/2025 6:49 AM SHEET CUTTER [address] [address] Test Date: 2025-02-05 Pat Name: BEV GÓMEZ Department: 12 Room: [address] [place] [address] Gender: Male Gray Mixing Operator: [id number] : 1965 Requested By: Order Number: [id number] Damon MURRIETA: Clau Jason Measurements Intervals [place] Rate: 60 P: 42 ND: 164 QRS: 4 QRSD: 80 T: 15 QT: 412 QTc: 412 Interpretive Statements Normal sinus rhythm Normal ECG Electronically Signed On 02-06-2025 6:49:59 SHEET CUTTER by Clau Jason Procedure Note Provider, Historical - 02/06/[address] [address] Test Date: 2025-02-05 Pat Name: BEV GÓMEZ Department: 12 Room: [address] [place] [address] Gender: Male Gray Mixing Operator: [id number] : 1965 Requested By: Order Number: [id number] Damon MURRIETA: Clua Jason Measurements Intervals [place] Rate: 60 P: 42 ND: 164 QRS: 4 QRSD: 80 T: 15 QT: 412 QTc: 412 Interpretive Statements Normal sinus rhythm Normal ECG Electronically Signed On 02-06-2025 6:49:59 SHEET CUTTER by Clau Jason us Fredy Theo MD ECG ORDERABLES Final Result INTERFACE SYSTEM Refer to clinic/hospital department from Last [address] [place] [address] RX [facility] [employer] * Guarantor: [facility] C (C) Account Type Relation to Patient Date of Phone Billing Address Corporate Other DEFAULT ADDRESS [address] [employer] * Guarantor: [facility] C (C) Account Type Relation to Patient Date of Phone Billing Address Corporate Other DEFAULT ADDRESS [address] [employer] Member Subscriber Plan / Payer (Ef fective 2007-Present) Name:Sheila Bev W Relation to Subscriber:Self Name:Sheila Bev Shilpa Payer ID:Not on file Group ID:Not on file Type:DE Address: [id number] [place] [address] Advance Directives For more information, please contact: [phone] * Full Code (Latest Code Status on File) Date Activated Date Inactivated Comments 02/05/2025 7:33 PM 02/08/2025 3:25 PM
[2025-02-19] MEDS: iohexol 350 mg/mL 500 mL Btl (per mL) IV (07:46)
[2025-02-19 07:48] LABS: Hematocrit 43.4 % (37-53); Hemoglobin 14.60 g/dL (11.27-16.99); Mean Corpuscular HGB Conc 33.6 g/dL (30-55); Mean Corpuscular Hemoglobin 32.0 pg (27-33); Mean Corpuscular Volume 95.2 fl (82-101); Nucleated Red Blood Cells % 0 %; Platelet Count 153 10^3/cmm (157-399); Red Blood Count 4.56 10^6/uL (3.85-5.65); White Blood Count 7.49 10^3/uL (3.29-11.43)
[2025-02-19 08:02] VITALS: RESP 16; O2SAT 97
[2025-02-19] MEDS: morphine 4 mg/mL SDV 1 mL IVP (08:02)
[2025-02-19] MEDS: ondansetron 2 mg/ML SDV 2 mL 4 MG IVP (08:03)
[2025-02-19 08:10] LABS: Alanine Aminotransferase 22 U/L (0-41); Albumin Level 4.1 g/dL (3.5-5.2); Alkaline Phosphatase 57 U/L (40-130); Anion Gap 14.8 (5-19); Aspartate Amino Transferase 17 U/L (0-40); Blood Urea Nitrogen 15 mg/dL (8-23); Calcium 8.9 mg/dL (8.5-10.5); Carbon Dioxide 25 mmol/L (22-29); Chloride 103 mmol/L (98-107); Globulin 2.5 g/dL (1.3-4.6); Glucose 175 mg/dL (65-115); Lipase 65 U/L (13-60); Osmolality Calculated 293 mOsm/kg (285-295); Potassium 3.8 mmol/L (3.5-5.1); Sodium 139 mmol/L (136-145); Total Protein 6.6 g/dL (6.6-8.7)
[2025-02-19 08:35] VITALS: BP 123/69; PULSE 72; O2SAT 94
== END 2025-02-19 08:35 | disposition home or self-care (01) ==
PROVIDERS: Emergency Provider Emergency Medicine; PCP Emergency Medicine
DX: R10.11 Right upper quadrant pain (principal)
CPT/HCPCS: 36415; 74177; 80053; 83690; 85025; 96374; 96375; 99285; J2270; J2405